=== PATIENT | male | born 1960 | race Caucasian/White ===

== ENCOUNTER 2019-07-05 09:33 | Outpatient (CLI) | payer MEDICAID, SELFPAY ==
--- NOTE | ~2019-07-05 | MR_ITS ---
EXAMINATION: MR brain IAC wo con DATE: 07/05/2019 11:18 INDICATION: One week of bilateral hand and foot numbness, left greater than right. TECHNIQUE: Magnetic resonance imaging (MRI) of the brain and brainstem was performed without intraven ous contrast. Sequences included sagittal and axial T1-weighted SE, axial diffusion-weighted FS SE, a xial T2*-weighted GRE, axial T2-weighted FLAIR, and axial T2-weighted FSE. Apparent diffusion coeffic ient (ADC) maps were created. COMPARISON: Head CT dated 04/22/2018 FINDINGS: There are no areas of restricted diffusion to suggest acute infarction. No intracranial hemorrhage or abnormal intracranial mass lesion. There are a few scattered small foci of nonspecific increased T2- weighted signal intensity in the cerebral white matter, predominantly involving the deep and perivent ricular white matter is within normal limits for age. There are no intraparenchymal signal abnormalit ies seen on the other pulse sequences. The ventricles are symmetric and normal in size. There are no abnormal extra-axial fluid collections. Flow voids are seen in the cerebral arteries on the T2-weight ed sequences consistent with their expected patency. Mild mucosal thickening throughout the paranasal sinuses. Visualized orbits and soft tissues are unremarkable. IMPRESSION: 1. Normal aging brain. No acute intracranial process. Reviewed, dictated and finalized at location A. ECHNICIAN
== END 2019-07-05 09:34 | disposition home or self-care (01) ==
PROVIDERS: PCP Family Medicine; Visit Provider Family Medicine
DX: R51 Headache (principal); R20.0 Anesthesia of skin
CPT/HCPCS: 70551

== ENCOUNTER 2019-07-07 14:17 | Outpatient (CLI) | payer MEDICAID, SELFPAY | END 2019-07-07 14:18 | disposition home or self-care (01) | PROVIDERS: PCP Family Medicine; Visit Provider Family Medicine | DX: I50.9 Heart failure, unspecified (principal) | CPT/HCPCS: 93306 ==

== ENCOUNTER 2019-07-31 13:57 | Outpatient (CLI) | payer MEDICAID, SELFPAY ==
[2019-07-31 15:10] LABS: Cholesterol 193 mg/dL (0-200); HDL Direct 38 mg/dL (40-60); LDL Cholesterol Calculated 95 mg/dL (<130); Triglycerides 302 mg/dL (0-150)
== END 2019-07-31 13:58 | disposition home or self-care (01) ==
PROVIDERS: PCP Family Medicine; Visit Provider Family Medicine
DX: E78.2 Mixed hyperlipidemia (principal)
CPT/HCPCS: 36415; 80061

== ENCOUNTER 2019-08-06 12:42 | Outpatient (CLI) | payer MEDICAID, SELFPAY ==
[2019-08-06 12:56] LABS: Basophils Absolute Auto 0.06 K/mm3 (0.00-0.10); Basophils Percent Auto 0.7 % (0.0-1.0); Eosinophils Absolute Auto 0.44 K/mm3 (0.02-0.50); Eosinophils Percent Auto 5.3 % (1.0-6.0); Hematocrit 47.5 % (40.0-54.0); Hemoglobin 15.6 g/dL (14.0-18.0); Immature Granulocyte Absolute 0.03 K/mm3 (0.00-0.00); Immature Granulocyte Percent A 0.4 % (0.0-0.0); Lymphocytes Absolute Auto 2.94 K/mm3 (1.10-4.50); Lymphocytes Percent Auto 35.4 % (18.0-42.0); Mean Corpuscular HGB Conc 32.8 g/dL (32.0-36.0); Mean Corpuscular Hemoglobin 29.7 pg (27.0-31.0); Mean Corpuscular Volume 90.5 fL (78.0-102.0); Mean Platelet Volume 8.6 fl (8.7-11.0); Monocytes Absolute Auto 0.68 K/mm3 (0.10-0.90); Monocytes Percent Auto 8.2 % (2.0-11.0); Neutrophils Absolute Auto 4.2 K/mm3 (1.7-7.2); Platelet Count Result 269 K/mm3 (150-420); Red Blood Count 5.25 M/mm3 (4.70-6.10); Red Cell Distribution Width 15.8 % (11.6-14.4); White Blood Count 8.3 K/mm3 (4.8-10.8)
[2019-08-06 13:25] LABS: Anion Gap 13.5 mmol/L (7-16); Blood Urea Nitrogen 16 mg/dL (7-18); Calcium 9.6 mg/dL (8.5-10.1); Carbon Dioxide 31 mmol/L (21-32); Chloride 102 mmol/L (98-108); Estimated Glomerular Filt Rate 57; Glucose 59 mg/dL (70-99); Magnesium 2.1 mg/dL (1.8-2.4); Osmolality Calculated 293 mOsm/kg (285-295); Potassium 4.5 mmol/L (3.5-5.1); Prothrombin Time 10.4 Seconds (9.64-11.0); Sodium 142 mmol/L (136-145)
== END 2019-08-06 12:43 | disposition home or self-care (01) ==
LOC: CHSLAB 12:45
PROVIDERS: PCP Family Medicine; Visit Provider Specialist
DX: I25.10 Atherosclerotic heart disease of native coronary artery without angina pectoris (principal); I51.9 Heart disease, unspecified
CPT/HCPCS: 36415; 80048; 83735; 85025; 85610

== ENCOUNTER 2019-08-15 10:47 | Outpatient (CLI) | payer MEDICAID, SELFPAY ==
[2019-08-15 11:39] LABS: Anion Gap 10.3 mmol/L (7-16); Blood Urea Nitrogen 12 mg/dL (7-18); Carbon Dioxide 32 mmol/L (21-32); Chloride 102 mmol/L (98-108); Estimated Glomerular Filt Rate 53; Glucose 100 mg/dL (70-99); Osmolality Calculated 289 mOsm/kg (285-295); Potassium 4.3 mmol/L (3.5-5.1); Sodium 140 mmol/L (136-145)
== END 2019-08-15 10:48 | disposition home or self-care (01) ==
LOC: CHSLAB 10:50
PROVIDERS: PCP Family Medicine; Visit Provider Specialist
DX: N28.9 Disorder of kidney and ureter, unspecified (principal)
CPT/HCPCS: 36415; 80048

== ENCOUNTER 2019-09-12 09:34 | Outpatient (CLI) | payer MEDICAID, SELFPAY ==
[2019-09-12 10:55] LABS: Anion Gap 12.1 mmol/L (7-16); Blood Urea Nitrogen 13 mg/dL (7-18); Carbon Dioxide 29 mmol/L (21-32); Chloride 104 mmol/L (98-108); Cholesterol 182 mg/dL (0-200); Estimated Glomerular Filt Rate 49; Glucose 114 mg/dL (70-99); HDL Direct 37 mg/dL (40-60); LDL Cholesterol Calculated 115 mg/dL (<130); Osmolality Calculated 293 mOsm/kg (285-295); Potassium 4.1 mmol/L (3.5-5.1); Sodium 141 mmol/L (136-145); Triglycerides 151 mg/dL (0-150)
== END 2019-09-12 09:35 | disposition home or self-care (01) ==
PROVIDERS: PCP Family Medicine
DX: Z79.899 Other long term (current) drug therapy (principal); E78.5 Hyperlipidemia, unspecified
CPT/HCPCS: 36415; 80048; 80061

== ENCOUNTER 2019-10-01 12:26 | Outpatient (CLI) | payer MEDICAID, SELFPAY ==
[2019-10-01 13:29] LABS: Anion Gap 12.3 mmol/L (7-16); Blood Urea Nitrogen 14 mg/dL (7-18); Calcium 8.8 mg/dL (8.5-10.1); Carbon Dioxide 31 mmol/L (21-32); Chloride 100 mmol/L (98-108); Estimated Glomerular Filt Rate 52; Glucose 96 mg/dL (70-99); Osmolality Calculated 288 mOsm/kg (285-295); Potassium 4.3 mmol/L (3.5-5.1); Sodium 139 mmol/L (136-145)
== END 2019-10-01 12:27 | disposition home or self-care (01) ==
LOC: CHSLAB 12:29
PROVIDERS: PCP Family Medicine; Visit Provider Internal Medicine Cardiovascular Disease
DX: I10 Essential (primary) hypertension (principal)
CPT/HCPCS: 36415; 80048

== ENCOUNTER 2019-12-12 11:41 | Outpatient (CLI) | payer MEDICAID, SELFPAY ==
--- NOTE | ~2019-12-12 | XR_ITS ---
XR foot LT min 3V DATE: 12/12/2019 12:08 INDICATION: Left dorsal foot pain for 3 weeks TECHNIQUE: 4 views COMPARISON: None FINDINGS: There is mild osteoarthritis at the first metatarsophalangeal joint. No fracture, dislocation, periosteal reaction or bone destruction is detected. No erosive change. IMPRESSION: Mild osteoarthritis at first metatarsophalangeal joint Reviewed, dictated and finalized at location B.
== END 2019-12-12 11:42 | disposition home or self-care (01) ==
LOC: CHSIMG 11:43
PROVIDERS: PCP Family Medicine; Visit Provider Family Medicine
DX: M79.672 Pain in left foot (principal)
CPT/HCPCS: 73630

== ENCOUNTER 2020-02-09 15:38 | Outpatient (CLI) | payer MEDICAID, SELFPAY ==
[2020-02-09 16:33] LABS: Basophils Absolute Auto 0.02 K/mm3 (0.00-0.10); Basophils Percent Auto 0.3 % (0.0-1.0); Eosinophils Absolute Auto 0.16 K/mm3 (0.02-0.50); Eosinophils Percent Auto 2.1 % (1.0-6.0); Hematocrit 50.9 % (40.0-54.0); Hemoglobin 16.3 g/dL (14.0-18.0); Immature Granulocyte Absolute 0.02 K/mm3 (0.00-0.00); Immature Granulocyte Percent A 0.3 % (0.0-0.0); Lymphocytes Absolute Auto 1.86 K/mm3 (1.10-4.50); Lymphocytes Percent Auto 24.6 % (18.0-42.0); Mean Corpuscular Hemoglobin 30.2 pg (27.0-31.0); Mean Corpuscular Volume 94.4 fL (78.0-102.0); Mean Platelet Volume 9.5 fl (8.7-11.0); Monocytes Absolute Auto 0.94 K/mm3 (0.10-0.90); Monocytes Percent Auto 12.5 % (2.0-11.0); Neutrophils Absolute Auto 4.6 K/mm3 (1.7-7.2); Neutrophils Percent Auto 60.2 % (50.0-70.0); Platelet Count Result 228 K/mm3 (150-420); Red Blood Count 5.39 M/mm3 (4.70-6.10); Red Cell Distribution Width 13.3 % (11.6-14.4); White Blood Count 7.6 K/mm3 (4.8-10.8)
[2020-02-09 16:34] LABS: Appearance Urine Sl Cloudy (Clear); Bilirubin Urine 1+ (Negative); Color Urine Amber (Yellow); Glucose Urine UA Negative (Negative); Ketones Urine Negative (Negative); Leukocyte Esterase Ur Negative (Negative); Nitrate Urine Negative (Negative); Protein Urine 1+ (Negative); Specific Grav Ur >= 1.030 (1.010-1.020); Urobilinogen Urine 0.2 mg/dL (0.2-1.0); pH Urine 5.5 (5.0-8.0)
[2020-02-09 16:45] LABS: Add Urine Microscopic? YES; Bacteria Urine Trace /hpf; Blood Urine Trace (Negative); RBC Urine 0-2 /hpf (0-2); Squamous Epithelial Cell Urine Rare /hpf (Few); WBC Urine 0-3 /hpf (0-3)
[2020-02-09 16:46] LABS: Mucus Urine Rare /lpf
[2020-02-09 17:10] LABS: Alanine Aminotransferase 19 U/L (16-63); Albumin Level 3.6 g/dL (3.4-5.0); Alkaline Phosphatase 105 U/L (46-116); Amylase 36 U/L (25-115); Anion Gap 12 mmol/L (8-16); Aspartate Amino Transferase 27 U/L (15-37); Bilirubin,Total 0.4 mg/dL (0.00-1.00); Blood Urea Nitrogen 17 mg/dL (7-18); Carbon Dioxide 29 mmol/L (21-32); Chloride 99 mmol/L (98-108); Estimated Glomerular Filt Rate > 60; Glucose 106 mg/dL (70-99); Lipase 120 U/L (73-393); Osmolality Calculated 291 mOsm/kg (285-295); Potassium 3.6 mmol/L (3.5-5.1); Sodium 140 mmol/L (136-145)
[2020-02-11 02:33] LABS: SARS-CoV-2 RNA PCR Negative
== END 2020-02-09 15:39 | disposition home or self-care (01) ==
LOC: CHSLAB 15:40
PROVIDERS: PCP Family Medicine; Visit Provider Family Medicine
DX: R10.817 Generalized abdominal tenderness (principal); R19.7 Diarrhea, unspecified; Z20.828 Contact with and (suspected) exposure to other viral communicable diseases
CPT/HCPCS: 36415; 80053; 81001; 82150; 83690; 85025; 87635; C9803; U0003

== ENCOUNTER 2020-02-10 11:01 | Outpatient (NON) | payer MEDICAID, SELFPAY | END 2020-02-10 11:02 | LOC: CHSLAB 11:02 | PROVIDERS: Visit Provider Family Medicine | DX: R19.7 Diarrhea, unspecified (principal) | CPT/HCPCS: 87045; 87046; 87077; 87427 ==

== ENCOUNTER 2020-05-06 11:53 | Outpatient (CLI) | payer MEDICAID, SELFPAY ==
--- NOTE | ~2020-05-06 | XR_ITS ---
XR foot LT min 3V DATE: 05/06/2020 12:20 INDICATION: Left foot pain, swelling of the digits. TECHNIQUE: 4 views COMPARISON: 12/08/2019 left foot FINDINGS: No fracture or dislocation, periosteal reaction or bone destruction. IMPRESSION: No significant abnormality Reviewed, dictated and finalized at location B. UCT CONSULTANT IMPRESSION: No significant abnormality
[2020-05-06 12:04] LABS: Basophils Absolute Auto 0.07 K/mm3 (0.00-0.10); Basophils Percent Auto 0.8 % (0.0-1.0); Eosinophils Absolute Auto 0.33 K/mm3 (0.02-0.50); Eosinophils Percent Auto 3.8 % (1.0-6.0); Hematocrit 39.7 % (40.0-54.0); Hemoglobin 13.1 g/dL (14.0-18.0); Immature Granulocyte Absolute 0.03 K/mm3 (0.00-0.00); Immature Granulocyte Percent A 0.3 % (0.0-0.0); Lymphocytes Absolute Auto 2.96 K/mm3 (1.10-4.50); Lymphocytes Percent Auto 34.1 % (18.0-42.0); Mean Corpuscular Hemoglobin 30.5 pg (27.0-31.0); Mean Corpuscular Volume 92.3 fL (78.0-102.0); Mean Platelet Volume 8.7 fl (8.7-11.0); Monocytes Absolute Auto 0.77 K/mm3 (0.10-0.90); Monocytes Percent Auto 8.9 % (2.0-11.0); Neutrophils Absolute Auto 4.5 K/mm3 (1.7-7.2); Neutrophils Percent Auto 52.1 % (50.0-70.0); Platelet Count Result 376 K/mm3 (150-420); Red Cell Distribution Width 14.7 % (11.6-14.4); White Blood Count 8.7 K/mm3 (4.8-10.8)
[2020-05-06 12:31] LABS: Alanine Aminotransferase 23 U/L (16-63); Alkaline Phosphatase 126 U/L (46-116); Anion Gap 8 mmol/L (8-16); Aspartate Amino Transferase 16 U/L (15-37); Bilirubin,Total 0.4 mg/dL (0.00-1.00); Blood Urea Nitrogen 17 mg/dL (7-18); Calcium 9.2 mg/dL (8.5-10.1); Carbon Dioxide 29 mmol/L (21-32); Chloride 99 mmol/L (98-108); Estimated Glomerular Filt Rate 54; Glucose 105 mg/dL (70-99); Osmolality Calculated 283 mOsm/kg (285-295); Potassium 4.4 mmol/L (3.5-5.1); Sodium 136 mmol/L (136-145); Uric Acid 6.7 mg/dL (3.5-7.2)
== END 2020-05-06 11:54 | disposition home or self-care (01) ==
PROVIDERS: PCP Family Medicine; Visit Provider Family Medicine
DX: M79.672 Pain in left foot (principal)
CPT/HCPCS: 36415; 73630; 80053; 84550; 85025

== ENCOUNTER 2020-09-06 02:53 | Inpatient (IN) | payer MEDICARE, MEDICAID, SELFPAY ==
[2020-09-06] VITALS (31 sets, daily range): BP systolic 82–157; BP diastolic 58–98; PULSE 68–99; RESP 12–22; TEMP 36.3–36.7; O2SAT 92–99; BMI 24.8
--- NOTE | ~2020-09-06 | XR_ITS ---
XR chest 1V portable DATE: 09/06/2020 03:15 INDICATION: Chest pain radiating to right arm TECHNIQUE: Portable AP chest on 09/06/2020 0318 hours COMPARISON: 06/12/2021 view chest FINDINGS: Left-sided transvenous AICD/pacemaker device, distal lead overlying the right ventricle. No rmal heart size. Coronary artery stent. Mild aortic unfolding and calcification. No hilar or mediastinal enlargement. Compared to 06/12/2019 there is mild prominence of the minor fissure which may indicate subpleural carolann ma in addition to pulmonary vascular redistribution which may indicate mild pulmonary venous hyperten sofia. There is mild infiltrate or atelectasis at the left lung base. No pleural effusion or pulmonary infiltrate or consolidation is noted otherwise. There is an old left humeral surgical neck fracture deformity with suggestion of nonunion/pseudoarthr osis. IMPRESSION: Pulmonary vascular redistribution and prominence of the minor fissure may indicate mild c ongestive changes. Normal heart size Mild infiltrate or atelectasis at the left lung base Reviewed, dictated and finalized at location A. IMPRESSION: Pulmonary vascular redistribution and prominence of the minor fissu re may indicate mild congestive changes. Normal heart size Mild infiltrate or atelectasis at the left lung base
--- NOTE | 2020-09-06 03:00 | ECG_ITS ---
Measurements Intervals [place] Rate: 92 P: 62 [place]: 130 QRS: 29 QRSD: 95 T: 91 QT: 326 QTc: 405 Interpretive Statements SINUS RHYTHM ST ELEVATION IN ANTERIOR LEADS- CONSIDER ACUTE INFARCT ST ELEVATION IN INFERIOR LEADS- CONSIDER ACUTE INFARCT BASELINE ARTIFACT- I, II, III, AVR, AVF, V2-V6 ABNORMAL ECG Electronically Signed On 09-06-2020 7:21:00 CDT by Fabian Bosch D.O.
--- NOTE | 2020-09-06 03:02 | ED.CHESTPAIN ---
HPI - Chest Pain General Chief Complaint: Chest Pain Stated Complaint: cp Time Seen by Provider: 09/06/20 02:53 History of Present Illness HPI narrative: 60 yo male w/ h/o CAD s/p multiple stents presents to the ED with chest pain. He has sharp substernal chest pain radiating to the right arm. This started about an hour prior to coming in. He tried nitroglycerine x2 with some improvement in symptoms. He also took 324 of aspirin. On arrival to the ED pain is 6/10. He reports that this feels like prio heart attacks. No SOB. He smokes 1 PPD Related Data Home Medications Medication Instructions Recorded Confirmed albuterol sulfate 90 mcg/actuation 1 inhalation INHALATION QID PRN 04/25/19 07/17/19 aerosol inhaler ezetimibe 10 mg tablet 10 mg PO DAILY 04/25/19 07/17/19 furosemide 40 mg tablet 40 mg PO QAM 04/25/19 07/17/19 mesalamine 500 mg 1,000 mg PO BID 04/25/19 07/17/19 capsule,controlled release rosuvastatin 40 mg tablet 40 mg PO DAILY 04/25/19 07/17/19 clopidogrel 75 mg tablet 75 mg PO DAILY 04/28/19 07/17/19 aspirin [Adult Low Dose Aspirin] 81 mg PO DAILY 06/12/19 07/17/19 insulin glargine [Basaglar KwikPen 4 unit SUBCUT DAILY 06/12/19 07/17/19 U-100 Insulin] metoprolol succinate 25 mg PO DAILY 06/12/19 07/17/19 nitroglycerin 0.4 mg SUBLINGUAL Q5M PRN 06/12/19 07/17/19 sacubitril-valsartan [Entresto] 1 tablet PO BID 06/12/19 07/17/19 warfarin [Coumadin] 2 mg PO DAILY 06/12/19 07/17/19 warfarin [Coumadin] 5 mg PO DAILY 06/12/19 07/17/19 Allergies Allergy/AdvReac Type Severity Reaction Status Date / Time No Known Allergies Allergy Mild Verified 09/06/20 03:01 Review of Systems Review of Systems: All systems reviewed & are unremarkable except as noted in HPI and below Eyes: Eyes: Reports no additional eye complaints ENT: Reports system reviewed and no additional complaints, except as documented Cardiovascular: Cardiovascular: Reports as per HPI Respiratory: Respiratory: Reports as per HPI Gastrointestinal: Gastrointestinal: Reports no additional gastrointestinal complaints Neurologic: Reports system reviewed and no additional complaints, except as documented [facility] Past Medical History Medical History CAD in [place] artery Carotid stenosis, bilateral Essential hypertension Obstructive sleep apnea PAD (peripheral artery disease) Renal artery stenosis SOB (shortness of breath) Stenosis of carotid artery Unspecified diastolic (congestive) heart failure Unspecified systolic (congestive) heart failure Family History Family History Father Family history of coronary artery disease Diabetes mellitus Family history of elevated blood lipids Mother Family history of coronary artery disease Family history of cardiovascular disease Sibling Family history of coronary artery disease Other Family history of gout Social History Social History Smoking status: Current every day smoker Smoking end date: 05/21/16 Alcohol intake: never Exam Const: Nutritional Appearance: average body habitus Orientation/consciousness: patient oriented x3 Other: Mild distress, chronically ill appearing HENMT: Head: normal to inspection Eyes: General: appearance normal, both eyes and all related structures Chest: Chest palpation & inspection: normal inspection of the chest and no tenderness Resp: Effort & Inspection: normal respiratory effort Auscultation: wheezes Cardio: Jugular venous distension: no JVD Rate: regular rate Rhythm: regular rhythm GI: GI Palp: No Tenderness to palpation present (GI) Skin: General skin exam: normal color Neuro: General: patient oriented x3 Course Vital Signs Vital signs: Vital Signs Temperature 36.3 C L 09/06/20 02:52 Pulse Rate 93 09/06/20 02:52 Respiratory Rate 22 H
[2020-09-06 03:08] LABS: Basophils Absolute Auto 0.1 K/mm3 (0.0-0.1); Basophils Percent Auto 0.6 % (0.2-1.2); Eosinophils Absolute Auto 0.3 K/mm3 (0-0.3); Eosinophils Percent Auto 3.4 % (0-4.4); Hematocrit 44.7 % (42.0-52.0); Immature Granulocyte Absolute 0.04 K/mm3 (0.00-0.031); Immature Granulocyte Percent A 0.4 % (0-0.5); Lymphocytes Absolute Auto 2.86 K/mm3 (0.9-3.2); Lymphocytes Percent Auto 30.1 % (18.3-44.2); Mean Corpuscular HGB Conc 33.6 g/dl (32-36); Mean Corpuscular Hemoglobin 30.7 pg (26-34); Mean Corpuscular Volume 91.4 fl (80-100); Mean Platelet Volume 9.1 fl (7.4-10.4); Monocytes Absolute Auto 0.7 K/mm3 (0.1-0.6); Monocytes Percent Auto 7.7 % (2.6-8.5); Neutrophils Absolute Auto 5.5 K/mm3 (1.3-6.7); Neutrophils Percent Auto 57.8 % (45.5-73.1); Platelet Count Result 256 k/mm3 (150-375); Red Blood Count 4.89 M/mm3 (4.6-6.20); Red Cell Distribution Width 14.6 % (11.5-14.5); White Blood Count 9.5 K/mm3 (4.5-10.0)
[2020-09-06] MEDS: MORPHINE SULFATE (*CRX) 2 MG/ML INJ IV PUSH (03:13)
[2020-09-06] MEDS: NITROGLYCERIN SL 0.4 MG TABLET SUBLINGUAL (03:13)
[2020-09-06 03:19] LABS: INR 0.9; Partial Thromboplastin Time 29.2 SECONDS (22.3-36.8); Prothrombin Time 12.6 Seconds (11.1-14.7)
[2020-09-06 03:23] LABS: Anion Gap 8 mmol/L (8-16); Blood Urea Nitrogen 15 mg/dL (9-20); Calcium 9.1 mg/dL (8.4-10.2); Carbon Dioxide 28 mmol/L (22-30); Chloride 104 mmol/L (98-107); Estimated Glomerular Filt Rate 51; Glucose 117 mg/dL (75-110); Potassium 4.2 mmol/L (3.4-5.0); Sodium 140 mmol/L (137-145)
--- NOTE | 2020-09-06 03:34 | PC.NURSE ---
Patient's bp 82/65, erp notified. VORB give 500ml bolus.
[2020-09-06 03:36] LABS: Troponin I 0.155 ng/mL (0.000-0.034)
[2020-09-06] MEDS: SODIUM CHLORIDE 0.9% IV 500 ML 999 ML IV CONT (03:37)
--- NOTE | 2020-09-06 03:38 | ECG_ITS ---
Measurements Intervals [place] Rate: 78 P: 27 MA: 112 QRS: 6 QRSD: 89 T: 95 QT: 388 QTc: 443 Interpretive Statements SINUS RHYTHM WITH SHORT MA INTERVAL ANTERIOR INFARCT, PROBABLY RECENT INFERIOR INFARCT, AGE INDETERMINATE BASELINE ARTIFACT- II, III, AVR, AVF, V2-V6 ABNORMAL ECG Electronically Signed On 09-06-2020 7:22:21 CDT by Fabian Bosch D.O.
[2020-09-06] MEDS: HEPARIN SODIUM 5,000 UNITS/ML VIAL 4000 UNITS IV PUSH ×2 (03:55→12:51)
[2020-09-06] MEDS: HEPARIN SOD/D5W 100 UNITS/ML 25,000 UNITS/250 ML BAG 8 UNITS IV CONT (04:01)
--- NOTE | 2020-09-06 04:08 | PC.NURSE ---
Per ERP, STEMI cancelled.
--- NOTE | 2020-09-06 04:16 | PC.NURSE ---
Patient in room resting on stretcher. Patient denies any pain at this time. Patient has bilateral 18g IVs in bilateral ACs. Patient has heparin going via IV pump. Patient VSS.
--- NOTE | 2020-09-06 05:44 | ADMGEN ---
This patient, Mendel Kyle, was admitted to IMU Room 206-02. Patient/family oriented to hospital policies and general routines including ID bracelet, bed and alarms, visiting hours, pain management, procedures, bathroom and other care routines, personal items, smoking policy, room service/diet, and visiting hours. Information on how to activate the Rapid Response Team has been discussed. Patient/Family are encouraged to report perceived risks to care and to ask questions if they do not understand what they are told or what they should do. Rosana TALAMANTES approx [id number]
[2020-09-06 07:15] LABS: Basophils Absolute Auto 0.1 K/mm3 (0.0-0.1); Basophils Percent Auto 0.6 % (0.2-1.2); Eosinophils Absolute Auto 0.2 K/mm3 (0-0.3); Eosinophils Percent Auto 1.5 % (0-4.4); Hematocrit 42.1 % (42.0-52.0); Hemoglobin 13.8 g/dL (14.0-18.0); Immature Granulocyte Absolute 0.03 K/mm3 (0.00-0.031); Immature Granulocyte Percent A 0.3 % (0-0.5); Lymphocytes Absolute Auto 2.64 K/mm3 (0.9-3.2); Lymphocytes Percent Auto 24.8 % (18.3-44.2); Mean Corpuscular HGB Conc 32.8 g/dl (32-36); Mean Corpuscular Hemoglobin 29.4 pg (26-34); Mean Corpuscular Volume 89.6 fl (80-100); Mean Platelet Volume 9.2 fl (7.4-10.4); Monocytes Absolute Auto 0.6 K/mm3 (0.1-0.6); Monocytes Percent Auto 5.5 % (2.6-8.5); Neutrophils Absolute Auto 7.2 K/mm3 (1.3-6.7); Neutrophils Percent Auto 67.3 % (45.5-73.1); Platelet Count Result 248 k/mm3 (150-375); Red Cell Distribution Width 14.3 % (11.5-14.5); White Blood Count 10.7 K/mm3 (4.5-10.0)
[2020-09-06 07:31] LABS: Prothrombin Time 13.8 Seconds (11.1-14.7)
--- NOTE | 2020-09-06 08:32 | PM.CNCAR ---
Assessment and Plan Assessment and plan (1) Non-ST elevation HI (NSTEMI): Code(s): I21.4 - Non-ST elevation (NSTEMI) myocardial infarction Status: Acute Assessment and Plan: Discussed case with Dr. Ruiz, our interventionalist about performing left heart cath. However he does not feel comfortable about performing via radial artery as patient has significant PAD and may require this. Patient also had last LHC via right radial by Dr. Worrell in [place] and had stent in same place last year. Will transfer patient to [facility] under Dr. Worrell for NSTEMI requiring left heart cath as he is their patient. Continue heparin drip. Continue home medications of aspirin, Clopidrogrel, Metoprolol, Rosuvastatin, Entresto. Hold off on Warfarin since will need cath and is on heparin drip. (2) Smoking: Code(s): F17.200 - Nicotine dependence, unspecified, uncomplicated Status: Acute Assessment and Plan: Counseled regarding smoking cessation. (3) Dyslipidemia: Code(s): E78.5 - Hyperlipidemia, unspecified Status: Acute (4) Hypertension: Code(s): I10 - Essential (primary) hypertension Status: Acute Assessment and Plan: Stable. (5) COPD (chronic obstructive pulmonary disease): Code(s): J44.9 - Chronic obstructive pulmonary disease, unspecified Status: Acute (6) PAD (peripheral artery disease): Code(s): I73.9 - Peripheral vascular disease, unspecified Status: Acute (7) CAD in [place] artery: Code(s): I25.10 - Atherosclerotic heart disease of [place] coronary artery without angina pectoris Status: Acute (8) ICD (implantable cardioverter-defibrillator) battery depletion: Code(s): Z45.02 - Encounter for adjustment and management of automatic implantable cardiac defibrillator Status: Acute Assessment and Plan: Unsure type of ICD device as patient is unsure. History of Present Illness History of Present Illness Consult date/time: 09/06/20 08:32 Patient is a 60 yr old man who presents to ER by ambulance for chest pain. His regular family consultant is Dr. Worrell in [place], [place]. He has a history of CAD, ICD placement, PAD with bilateral lower extremity bypass and stenting and CEA bilaterally, smoking, dyslipidemia, hypertension. Initially, ER called a STEMI activation, but Dr. Cristobal did not believe it to be acute so he was admitted as a NSTEMI. States his mid chest pressure radiating to right chest area started last night around 11:30-12:00 and it became severe 14/10 and currently it is 2/10. EKG shows possible sinus rhythm with anterior ST elevation- possible acute infarct. Troponins went from 0.15 to 1.4. He is on heparin drip. Normally, he can walk 1/2 block with a cane due to pain in legs and POST. Denies chest pain, sob, palpitations, edema. Cardiovascular Procedures [employer] Consultant:: Jan 2019 at [facility]: Fem-pop bypass surgery bilaterally and 2 stents bilaterally. CEA bilaterally in 2018 at [facility]. Cath (Prox LAD with 50% instent restenosis and minor/moderate luminal irregularities in LM, LCx, RCA.) - 08/19/2015 Echo/MUGA:: Echo (EF 40-45%, mid to apical septum is akinetic and mid to apical lateral wall is akinetic, and entire apex is akinetic. No apical thrombus, mild LVE, grade I diastolic dysfunction (E/E' 11), mild MR, trace TR.) - 01/14/2019 Electrophysiology:: EKG (Sinus rhythm, delayed R/S transition.) - 12/24/2018 Stress Tests:: MPI (Negative for ischemia. Large area of severe infarct of LV apex and apical segments. EF 46%.) - 01/14/2019 Abd/Pelvis CT (LV apex aneurysm with 9mm thrombus, thinning of LV apex and of septum; occlusion of right external iliac artery and reconstitution from inf epigsstric artery.) - 12/25/2018 Reason For Visit: NSTEMI Review of Systems Review of Systems: All systems reviewed & are unremarkable except as noted in HPI and below Constitutional: Constitutiona
[2020-09-06 12:40] LABS: Partial Thromboplastin Time 42.8 SECONDS (22.3-36.8)
--- NOTE | 2020-09-06 14:39 | PM.IMHP ---
H&P: HPI History of Present Illness Date/Time: 09/06/20 14:39 patient is 60 year old male with history of coronary artery disease most likely ischemic cardiomyopathy with ICD presented emergency department via EMS with complaint of chest pain initially was called STEMI by ER however shipping helper review of the EKG and did not suspect STEMI and called NSTEMI and did not require immediate catheterization, patient was seen by Dr. Bosch, patient is regular shipping helper is [facility] on . Dr. Bosch spoke with the shipping helper and is accepted for transfer, patient is on heparin drip will continue currently patient denies any chest pain shortness of breath palpitation or disease, patient patient is clinically stable and waiting for to be transferred. Chief Complaint: Chest pain Review of Systems Review of Systems: All systems reviewed & are unremarkable except as noted in HPI and below PMFSH Past Medical History Medical History CAD in [place] artery Carotid stenosis, bilateral Essential hypertension Obstructive sleep apnea PAD (peripheral artery disease) Renal artery stenosis SOB (shortness of breath) Stenosis of carotid artery Unspecified diastolic (congestive) heart failure Unspecified systolic (congestive) heart failure Family History Family History Father Family history of coronary artery disease Diabetes mellitus Family history of elevated blood lipids Mother Family history of coronary artery disease Family history of cardiovascular disease Sibling Family history of coronary artery disease Other Family history of gout Social History Social History Smoking packs per day: 1 Smoking cigarettes per day: 20.0 Years smoked: 45 Smoking pack-years: 45.00 Smoking status: Current every day smoker Tobacco type: cigarettes Alcohol intake: never Substance use: never Gender identity (if verbalized by the patient): Male Spiritual care concerns: No Meds Home Medications and Allergies Home Medications Medication Instructions Recorded Confirmed Type albuterol sulfate 90 mcg/actuation 2 puff INHALATION QID PRN 04/25/19 09/06/20 History aerosol inhaler ezetimibe 10 mg tablet 10 mg PO DAILY 04/25/19 09/06/20 History furosemide 40 mg tablet 40 mg PO QAM 04/25/19 09/06/20 History mesalamine 500 mg 1,000 mg PO BID 04/25/19 09/06/20 History capsule,controlled release rosuvastatin 40 mg tablet 40 mg PO DAILY 04/25/19 09/06/20 History clopidogrel 75 mg tablet 75 mg PO DAILY 04/28/19 09/06/20 History aspirin [Adult Low Dose Aspirin] 81 mg PO DAILY 06/12/19 09/06/20 History insulin glargine [Basaglar KwikPen 4 unit SUBCUT DAILY 06/12/19 09/06/20 History U-100 Insulin] metoprolol succinate 25 mg PO DAILY 06/12/19 09/06/20 History nitroglycerin 0.4 mg SUBLINGUAL Q5M PRN 06/12/19 09/06/20 History sacubitril-valsartan [Entresto] 1 tablet PO BID 06/12/19 09/06/20 History warfarin [Coumadin] 2 mg PO DAILY 06/12/19 09/06/20 History warfarin [Coumadin] 5 mg PO DAILY 06/12/19 09/06/20 History Allergies Allergy/AdvReac Type Severity Reaction Status Date / Time No Known Allergies Allergy Mild Verified 09/06/20 03:01 Vital Signs Vital Signs - 24 hr 09/06/20 02:52 09/06/20 03:06 09/06/20 03:15 Temperature 97.3 F L Pulse Rate 93 82 85 Respiratory Rate 22 H 12 21 H Blood Pressure 153/98 H Pulse Oximetry 98 96 97 09/06/20 03:16 09/06/20 03:30 09/06/20 03:31 Temperature Pulse Rate 99 73 76 Respiratory Rate 14 15 20 Blood Pressure 140/96 H 84/58 L Pulse Oximetry 97 93 92 09/06/20 03:33 09/06/20 03:37 09/06/20 03:48 Temperature Pulse Rate 79 79 78 Respiratory Rate 21 H 17 19 Blood Pressure 82/65 L 82/65 L Pulse Oximetry 94 94 93 09/06/20 04:03 09/06/20 04:15 09/06/20
--- NOTE | 2020-09-06 14:44 | PM.TDS ---
Transfer Discharge Sum: Prov Provider Date of admission: 09/06/20 04:06 Primary care physician: Bal Man MD Admitting clinician: Fabian Bosch DO Consults: 09/06/20 Consult to Physician Routine Comment: Consulting Provider: Ally Quintana insulation power unit tender/MD group to consult: Reason for consultation: medical management Has provider been notified: Yes DS: Admitting Diagnosis Admitting Diagnosis Admitting Diagnosis: Chief Complaint: Chest pain DS: Discharge Diagnosis Discharge Diagnosis (1) Non-ST elevation CA (NSTEMI): Code(s): I21.4 - Non-ST elevation (NSTEMI) myocardial infarction Status: Acute Assessment and Plan: 09/06/20 14:39 patient is 60 year old male with history of coronary artery disease most likely ischemic cardiomyopathy with ICD presented emergency department via EMS with complaint of chest pain initially was called STEMI by ER however commissioned sales associate review of the EKG and did not suspect STEMI and called NSTEMI and did not require immediate catheterization, patient was seen by Dr. Bosch, patient is regular commissioned sales associate is [facility] on . Dr. Bosch spoke with the commissioned sales associate and is accepted for transfer, patient is on heparin drip will continue currently patient denies any chest pain shortness of breath palpitation or disease, patient patient is clinically stable and waiting for to be transferred. Transfer Discharge Sum: Med Medications Active and Home Medications: Home Medications albuterol sulfate 90 mcg/actuation aerosol inhaler 2 puff INHALATION QID PRN 04/25/19 [History Confirmed 09/06/20] ezetimibe 10 mg tablet 10 mg PO DAILY 04/25/19 [History Confirmed 09/06/20] furosemide 40 mg tablet 40 mg PO QAM 04/25/19 [History Confirmed 09/06/20] mesalamine 500 mg capsule,controlled release 1,000 mg PO BID 04/25/19 [History Confirmed 09/06/20] rosuvastatin 40 mg tablet 40 mg PO DAILY 04/25/19 [History Confirmed 09/06/20] clopidogrel 75 mg tablet 75 mg PO DAILY 04/28/19 [History Confirmed 09/06/20] aspirin [Adult Low Dose Aspirin] 81 mg PO DAILY 06/12/19 [History Confirmed 09/06/20] insulin glargine [Basaglar KwikPen U-100 Insulin] 4 unit SUBCUT DAILY 06/12/19 [History Confirmed 09/06/20] metoprolol succinate 25 mg PO DAILY 06/12/19 [History Confirmed 09/06/20] nitroglycerin 0.4 mg SUBLINGUAL Q5M PRN 06/12/19 [History Confirmed 09/06/20] sacubitril-valsartan [Entresto] 1 tablet PO BID 06/12/19 [History Confirmed 09/06/20] warfarin [Coumadin] 2 mg PO DAILY 06/12/19 [History Confirmed 09/06/20] warfarin [Coumadin] 5 mg PO DAILY 06/12/19 [History Confirmed 09/06/20] Active Medications Albuterol (Albuterol Sulfate (*Sp) Aerosol 1 Puff) 2 puff INHALATION QID PRN PRN Reason: Shortness Of Breath Aspirin (Aspirin 81 Mg Enteric Tablet) 81 mg PO DAILY [facility] Clopidogrel Bisulfate (Clopidogrel Bisulfate 75 Mg Tablet) 75 mg PO DAILY [facility] Ezetimibe (Ezetimibe 10 Mg Tablet) 10 mg PO DAILY [facility] Furosemide (Furosemide 40 Mg Tablet) 40 mg PO QAM [facility] Heparin Sodium (Porcine) (Heparin Sodium 5,000 Units/Ml Vial) 4,000 units IV PUSH PRN PRN PRN Reason: aPTT less than 55 seconds Last Admin: 09/06/20 12:51 Dose: 4,000 units Documented by: Heparin Sodium (Porcine) (Heparin Sodium 5,000 Units/Ml Vial) 2,500 units IV PUSH PRN PRN PRN Reason: aPTT 55 - 70 seconds Heparin Sodium/Dextrose (Heparin Sodium/D5w 100 Units/Ml) 25,000 units in 250 mls @ 9 mls/hr IV CONT .Q24H YOMI; Protocol Last Titration: 09/06/20 12:45 Dose: 900 units/hr, 9 mls/hr Documented by: Metoprolol Succinate (Metoprolol Succinate Ext Rel 25 Mg Tabcr) 25 mg PO DAILY [facility] Nitroglycerin (Nitroglycerin Sl 0.4 Mg Tablet) 0.4 mg SUBLINGUAL Q5MIN PRN PRN Reason: Chest Pain Last Admin: 09/06/20 03:13 Dose: 0.4 mg Documented by: Nitroglycerin (Nitroglycerin Sl 0.4 Mg Tablet) 0.4 mg SUBLINGUAL Q5M PRN PRN Reason: Chest Pain Non-Formulary Medication (Mesalamine [Pentasa]) 1,000 mg PO BID YOMI Stop: 10/06/20 1
[2020-09-06] MEDS: MESALAMINE 250 MG CAP CR 1000 MG PO (18:24)
[2020-09-06] MEDS: SACUBITRIL/VALSARTAN 24-26 MG TABLET 1 TAB PO (18:24)
[2020-09-06 18:25] LABS: Partial Thromboplastin Time 95.3 SECONDS (22.3-36.8)
[2020-09-06 19:04] LABS: SARS-CoV-2 RNA PCR Negative
== END 2020-09-06 19:45 | disposition short-term general hospital (02) | DRG 281 ==
LOC: ANHED 04:34 → ANHIMU 05:04
PROVIDERS: Internal Medicine Cardiovascular Disease; Admitting Provider Family Medicine; Emergency Provider Emergency Medicine; PCP Family Medicine; Visit Provider Family Medicine
DX: I21.4 Non-ST elevation (NSTEMI) myocardial infarction (principal); I50.42 Chronic combined systolic (congestive) and diastolic (congestive) heart failure; I11.0 Hypertensive heart disease with heart failure; Z20.822 Contact with and (suspected) exposure to COVID-19; I25.10 Atherosclerotic heart disease of native coronary artery without angina pectoris; I25.5 Ischemic cardiomyopathy; G47.33 Obstructive sleep apnea (adult) (pediatric); I65.23 Occlusion and stenosis of bilateral carotid arteries; I70.1 Atherosclerosis of renal artery; I73.9 Peripheral vascular disease, unspecified; E78.5 Hyperlipidemia, unspecified; J44.9 Chronic obstructive pulmonary disease, unspecified; F17.210 Nicotine dependence, cigarettes, uncomplicated; Z95.810 Presence of automatic (implantable) cardiac defibrillator
CPT/HCPCS: 36415; 71045; 80048; 84484; 85025; 85610; 85730; 93005; 96374; 96375; 99291; A9270; C9803; J1644; J2270; J7040; U0003; U0005

== ENCOUNTER 2021-02-12 12:28 | Emergency (ER) | payer MEDICAID, SELFPAY ==
[2021-02-12] VITALS (7 sets, daily range): BP systolic 112–167; BP diastolic 78–97; PULSE 84–117; RESP 16–20; TEMP 36.6–36.8; O2SAT 91–98
--- NOTE | ~2021-02-12 | XR_ITS ---
EXAMINATION: XR chest 1V portable EXAM DATE: 02/12/2021 12:51 INDICATION: Multiple defibrillator discharges and pain. TECHNIQUE: Portable AP frontal chest x-ray was obtained. Comparison is made to prior examination from 09/06/2020. FINDINGS: There is single lead pacemaker/AICD device seen with tip projecting over the expected locat ion of right ventricle. Mild cardiomegaly and pulmonary vascular congestion. No confluent consolidati on, pneumothorax or pleural effusion suspected. Old left humeral neck fracture with nonunion. IMPRESSION: Cardiomegaly, pulmonary vascular congestion. Reviewed, dictated and finalized at location A.
--- NOTE | 2021-02-12 12:32 | ECG_ITS ---
Measurements Intervals [place] Rate: 120 P: 52 NM: 137 QRS: 15 QRSD: 87 T: 90 QT: 276 QTc: 390 Interpretive Statements SINUS TACHYCARDIA MINIMAL Q WAVES- INFERIOR LEADS ANTERIOR INFARCT, AGE INDETERMINATE BORDERLINE ST-T WAVE ABNORMALITY- HIGH LATERAL LEADS ABNORMAL ECG Electronically Signed On 02-14-2021 6:56:23 CDT by Fabian Bosch D.O.
--- NOTE | 2021-02-12 12:35 | ED.GENADULT ---
HPI - General Adult General Chief complaint: Chest Pain Stated complaint: ambulance Source: patient and EMS Mode of arrival: EMS Limitations: no limitations History of Present Illness HPI narrative: Mendel is a very pleasant 60M with a PMH of CAD, PAD, COPD, Crohns, HTN, HLD, DMII, HFrEF s/p pacemaker that presented to the ED after his pacemaker went off 10 times. He was pouring sugar in his coffee when he noticed some palpitations then he was shocked 10 times or so. It has not gone off since EMS arrived. He denies CP outside the shocks, SOB, lightheadedness, N/V and syncope. Related Data Home Medications Medication Instructions Recorded Confirmed albuterol sulfate 90 mcg/actuation 2 puff INHALATION QID PRN 04/25/19 02/12/21 aerosol inhaler furosemide 40 mg tablet 20 mg PO QAM 04/25/19 02/12/21 rosuvastatin 40 mg tablet 40 mg PO DAILY 04/25/19 02/12/21 clopidogrel 75 mg tablet 75 mg PO DAILY 04/28/19 02/12/21 aspirin [Adult Low Dose Aspirin] 81 mg PO DAILY 06/12/19 02/12/21 insulin glargine [Basaglar KwikPen 4 unit SUBCUT DAILY 06/12/19 02/12/21 U-100 Insulin] nitroglycerin 0.4 mg SUBLINGUAL Q5M PRN 06/12/19 02/12/21 sacubitril-valsartan [Entresto] 1 tablet PO BID 06/12/19 02/12/21 carvedilol 25 mg PO BID 02/12/21 02/12/21 ezetimibe [Zetia] 10 mg PO DAILY 02/12/21 02/12/21 ipratropium bromide [Atrovent HFA] 10 puff INHALATION QID 02/12/21 02/12/21 ipratropium-albuterol [Combivent 1 puff INHALATION QID 02/12/21 02/12/21 Respimat] isosorbide mononitrate 30 mg PO DAILY 02/12/21 02/12/21 mesalamine [Pentasa] 1,000 mg PO QID 02/12/21 02/12/21 rivaroxaban [Xarelto] 15 mg PO DAILY 02/12/21 02/12/21 spironolactone 25 mg PO DAILY 02/12/21 02/12/21 tramadol 50 mg PO Q6H PRN 02/12/21 02/12/21 Allergies Allergy/AdvReac Type Severity Reaction Status Date / Time No Known Allergies Allergy Mild Verified 02/12/21 14:15 Review of Systems Constitutional: Constitutional: Reports no additional constitutional complaints Eyes: Eyes: Reports no additional eye complaints ENT: Reports system reviewed and no additional complaints, except as documented Cardiovascular: Cardiovascular: Reports as per HPI Respiratory: Respiratory: Reports no additional respiratory complaints Gastrointestinal: Gastrointestinal: Reports no additional gastrointestinal complaints Genitourinary: Genitourinary: Reports no additional male genitourinary complaints Musculoskeletal: Musculoskeletal: Reports no additional musculoskeletal complaints Integumentary/Breasts: Skin/Breast: Reports system reviewed and no additional complaints, except as docu Neurologic: Reports system reviewed and no additional complaints, except as documented Psychiatric: Psychiatric: Reports no additional psychiatric complaints Endocrine: Endocrine: Reports no additional endocrine complaints Hematologic/Lymphatic: Hematologic/Lymphatic: Reports no additional hematologic/lymphatic complaints Allergic/Immunologic: Allergic/Immunologic: Reports no additional allergic/immunologic complaints [facility] Past Medical History Medical History CAD in [place] artery Carotid stenosis, bilateral Essential hypertension Obstructive sleep apnea PAD (peripheral artery disease) Renal artery stenosis SOB (shortness of breath) Stenosis of carotid artery Unspecified diastolic (congestive) heart failure Unspecified systolic (congestive) heart failure Family History Family History Father Family history of coronary artery disease Diabetes mellitus Family history of elevated blood lipids Mother Family history of coronary artery disease Family history of cardiovascular disease Sibling Family history of coronary artery disease Other Family history of gout Social History Social History Smoking packs per da
[2021-02-12 12:45] LABS: Basophils Absolute Auto 0.05 K/mm3 (0.00-0.10); Basophils Percent Auto 0.7 % (0.0-1.0); Eosinophils Absolute Auto 0.26 K/mm3 (0.02-0.50); Eosinophils Percent Auto 3.6 % (1.0-6.0); Hematocrit 50.2 % (40.0-54.0); Hemoglobin 16.5 g/dL (14.0-18.0); Immature Granulocyte Absolute 0.02 K/mm3 (0.00-0.00); Immature Granulocyte Percent A 0.3 % (0.0-0.0); Mean Corpuscular HGB Conc 32.9 g/dL (32.0-36.0); Mean Corpuscular Hemoglobin 30.4 pg (27.0-31.0); Mean Corpuscular Volume 92.6 fL (78.0-102.0); Mean Platelet Volume 9.6 fl (8.7-11.0); Monocytes Absolute Auto 0.44 K/mm3 (0.10-0.90); Neutrophils Absolute Auto 3.3 K/mm3 (1.7-7.2); Neutrophils Percent Auto 45.4 % (50.0-70.0); Platelet Count Result 213 K/mm3 (150-420); Red Blood Count 5.42 M/mm3 (4.70-6.10); Red Cell Distribution Width 14.1 % (11.6-14.4); White Blood Count 7.3 K/mm3 (4.8-10.8)
[2021-02-12 12:58] LABS: Prothrombin Time 11.1 Seconds (9.50-12.10)
[2021-02-12 13:08] LABS: Alanine Aminotransferase 18 U/L (16-63); Albumin Level 3.8 g/dL (3.4-5.0); Alkaline Phosphatase 137 U/L (46-116); Anion Gap 13 mmol/L (8-16); Aspartate Amino Transferase 14 U/L (15-37); Bilirubin,Total 0.5 mg/dL (0.00-1.00); Blood Urea Nitrogen 15 mg/dL (7-18); Calcium 9.1 mg/dL (8.5-10.1); Carbon Dioxide 26 mmol/L (21-32); Chloride 102 mmol/L (98-108); Estimated Glomerular Filt Rate 38; Glucose 165 mg/dL (70-99); Osmolality Calculated 296 mOsm/kg (285-295); Potassium 4.8 mmol/L (3.5-5.1); Sodium 141 mmol/L (136-145); Total Protein 7.9 g/dL (6.4-8.2)
[2021-02-12 13:09] LABS: Troponin I 199.8 ng/L (0.00-60.4)
[2021-02-12 13:29] LABS: NT Pro B Type Natriuretic Pept 2199 pg/mL (0-125)
--- NOTE | 2021-02-12 14:06 | PC.NURSE ---
pt resting quietly. at bedside. awaiting return call from cardiology from [facility]. do discharge of internal defib since arrival. no change in monitor pattern
[2021-02-12 14:15] LABS: SARS-CoV-2 Ag Negative (Negative)
--- NOTE | 2021-02-12 14:36 | PC.NURSE ---
3rd attempt to reach cardiology at [facility] unsuccessful at this time. no change in pt condition or monitor pattern. family at the bedside. few ice offered. no internal defib discharge since arrival.
[2021-02-12] MEDS: ASPIRIN 81 MG CHEWABLE TABLET 243 MG PO (15:12)
[2021-02-12] MEDS: AMIODARONE 150 MG/D5W 100 ML 150 MG/100 ML BAG 600 MG IV CONT (15:12)
[2021-02-12 15:19] LABS: Magnesium 1.9 mg/dL (1.8-2.4); Thyroid Stimulating Hormone 2.23 uIU/mL (0.36-3.74)
[2021-02-12] MEDS: AMIODARONE 360 MG/D5W 200 ML 360 MG/200 ML BAG 33.33 MG IV CONT (15:25)
--- NOTE | 2021-02-12 15:32 | PC.NURSE ---
amiodarone gtt infusing well. awaiting call from receiving facility, [facility] pt denies pain at this time.
== END 2021-02-12 16:25 | disposition short-term general hospital (02) ==
PROVIDERS: Emergency Provider Family Medicine
DX: I50.31 Acute diastolic (congestive) heart failure (principal); Z20.822 Contact with and (suspected) exposure to COVID-19
CPT/HCPCS: 36415; 71045; 80053; 83735; 83880; 84443; 84484; 85025; 85610; 87426; 93005; 96365; 99285; A9270; C9803; J0282

== ENCOUNTER 2021-03-02 08:24 | Outpatient (CLI) | payer MEDICAID, SELFPAY ==
[2021-03-02 09:31] LABS: Anion Gap 10 mmol/L (8-16); Blood Urea Nitrogen 13 mg/dL (7-18); Calcium 8.9 mg/dL (8.5-10.1); Carbon Dioxide 28 mmol/L (21-32); Chloride 104 mmol/L (98-108); Estimated Glomerular Filt Rate 45; Glucose 76 mg/dL (70-99); Osmolality Calculated 293 mOsm/kg (285-295); Potassium 4.3 mmol/L (3.5-5.1); Sodium 142 mmol/L (136-145)
== END 2021-03-02 08:25 | disposition home or self-care (01) ==
LOC: CHSLAB 08:29
PROVIDERS: PCP Family Medicine
DX: E11.40 Type 2 diabetes mellitus with diabetic neuropathy, unspecified (principal); Z45.02 Encounter for adjustment and management of automatic implantable cardiac defibrillator
CPT/HCPCS: 36415; 80048; 83036

== ENCOUNTER 2021-04-07 08:11 | Outpatient (CLI) | payer MEDICAID, SELFPAY ==
[2021-04-07 09:23] LABS: Cholesterol 86 mg/dL (0-200); HDL Direct 36 mg/dL (40-60); LDL Cholesterol Calculated 30 mg/dL (<130); Triglycerides 100 mg/dL (0-150)
== END 2021-04-07 08:12 | disposition home or self-care (01) ==
LOC: CHSLAB 08:12
PROVIDERS: PCP Family Medicine; Visit Provider Internal Medicine Cardiovascular Disease
DX: E78.5 Hyperlipidemia, unspecified (principal)
CPT/HCPCS: 36415; 80061

== ENCOUNTER 2021-05-30 08:14 | Outpatient (CLI) | payer MEDICAID, SELFPAY ==
--- NOTE | ~2021-05-30 | XR_ITS ---
EXAMINATION: XR chest 2V DATE: 05/30/2021 08:39 INDICATION: Shortness of breath. Chest tightness. TECHNIQUE: Frontal and lateral views of the chest were obtained. COMPARISON: Chest single view 02/12/2021, CT abdomen and pelvis 08/29/2018 FINDINGS: A calcified left lung nodule is consistent with old granulomatous disease. No pleural effus ion or pneumothorax. The heart size is normal. There is a left chest pacer/defibrillator with lead in right ventricle. There is an old fracture of proximal left humerus. IMPRESSION: 1. No acute cardiopulmonary disease. Reviewed, dictated and finalized at location B. K SALES MANAGER
[2021-05-30 08:28] LABS: Basophils Absolute Auto 0.04 K/mm3 (0.00-0.10); Basophils Percent Auto 0.5 % (0.0-1.0); Eosinophils Absolute Auto 0.32 K/mm3 (0.02-0.50); Eosinophils Percent Auto 4.2 % (1.0-6.0); Hematocrit 46.2 % (40.0-54.0); Immature Granulocyte Absolute 0.02 K/mm3 (0.00-0.00); Immature Granulocyte Percent A 0.3 % (0.0-0.0); Lymphocytes Absolute Auto 2.35 K/mm3 (1.10-4.50); Mean Corpuscular HGB Conc 32.5 g/dL (32.0-36.0); Mean Corpuscular Hemoglobin 30.9 pg (27.0-31.0); Mean Corpuscular Volume 95.1 fL (78.0-102.0); Mean Platelet Volume 8.9 fl (8.7-11.0); Monocytes Absolute Auto 0.47 K/mm3 (0.10-0.90); Monocytes Percent Auto 6.2 % (2.0-11.0); Neutrophils Absolute Auto 4.4 K/mm3 (1.7-7.2); Neutrophils Percent Auto 57.8 % (50.0-70.0); Platelet Count Result 277 K/mm3 (150-420); Red Blood Count 4.86 M/mm3 (4.70-6.10); Red Cell Distribution Width 13.6 % (11.6-14.4); White Blood Count 7.6 K/mm3 (4.8-10.8)
[2021-05-30 09:15] LABS: Anion Gap 8 mmol/L (8-16); Blood Urea Nitrogen 24 mg/dL (7-18); Calcium 8.9 mg/dL (8.5-10.1); Carbon Dioxide 34 mmol/L (21-32); Chloride 99 mmol/L (98-108); Estimated Glomerular Filt Rate 39; Glucose 127 mg/dL (70-99); Osmolality Calculated 298 mOsm/kg (285-295); Potassium 3.9 mmol/L (3.5-5.1); Sodium 141 mmol/L (136-145)
== END 2021-05-30 08:15 | disposition home or self-care (01) ==
LOC: CHSLAB 08:17
PROVIDERS: PCP Family Medicine; Visit Provider Internal Medicine Cardiovascular Disease
DX: R06.02 Shortness of breath (principal); Z92.29 Personal history of other drug therapy; Z79.899 Other long term (current) drug therapy
CPT/HCPCS: 36415; 71046; 80048; 85025

== ENCOUNTER 2021-06-01 11:56 | Outpatient (CLI) | payer MEDICAID, SELFPAY ==
--- NOTE | ~2021-06-01 | CT_ITS ---
EXAMINATION: CTA chest PE protocol DATE: 06/01/2021 14:18 INDICATION: Shortness of breath. TECHNIQUE: Computed tomography angiography (CTA) of the chest was performed with 100 mL Omnipaque-350 intravenous contrast timed to evaluate the pulmonary arteries. Coronal maximum intensity projection 3D-reconstructions were created by the technologist. Automated exposure control and iterative reconst ruction technique were employed. The dose-length product was 156.35 mGy-cm. COMPARISON: Chest CT 05/16/2017, chest 2 views 05/30/2021 FINDINGS: There is moderate emphysema. There is mild atelectasis bilaterally. There is mild scarring at the lung apices. There is a new 6 mm nodule in left upper lobe. There is a new 4 mm nodule in left upper lobe. A calcified left lung nodule and calcified left hilar lymph nodes are consistent with ol d granulomatous disease. No pleural effusion. There is left ventricular enlargement the heart. There is a stent in left anterior descending coronary artery. No pericardial effusion. There is a left ches t pacer with lead in right ventricle. Calcifications in the spleen are consistent with old granulomat ous disease. There is no pulmonary embolus. There is mild thoracic spondylosis. IMPRESSION: 1. No pulmonary embolus. 2. New pulmonary nodules, probably benign. Noncontrast low-dose chest CT is recommended in 6 months. 3. Moderate emphysema. Reviewed, dictated and finalized at location B. IGURATION DEVELOPER IMPRESSION: 1. No pulmonary embolus. 2. New pulmonary nodules, probably benign. Noncontrast low-dose chest CT is rec ommended in 6 months. 3. Moderate emphysema.
[2021-06-01 12:42] LABS: D Dimer 2.54 mg/L (0.19-0.50)
== END 2021-06-01 11:57 | disposition home or self-care (01) ==
PROVIDERS: PCP Family Medicine; Visit Provider Internal Medicine Cardiovascular Disease
DX: R06.02 Shortness of breath (principal); R00.0 Tachycardia, unspecified; R79.89 Other specified abnormal findings of blood chemistry
CPT/HCPCS: 36415; 71275; 85380; Q9967

== ENCOUNTER 2021-07-11 12:45 | Outpatient (CLI) | payer MEDICAID, SELFPAY ==
[2021-07-11 13:03] LABS: Basophils Absolute Auto 0.06 K/mm3 (0.00-0.10); Basophils Percent Auto 0.9 % (0.0-1.0); Eosinophils Absolute Auto 0.26 K/mm3 (0.02-0.50); Eosinophils Percent Auto 3.7 % (1.0-6.0); Hematocrit 42.6 % (40.0-54.0); Hemoglobin 13.8 g/dL (14.0-18.0); Immature Granulocyte Absolute 0.01 K/mm3 (0.00-0.00); Immature Granulocyte Percent A 0.1 % (0.0-0.0); Lymphocytes Absolute Auto 1.93 K/mm3 (1.10-4.50); Lymphocytes Percent Auto 27.6 % (18.0-42.0); Mean Corpuscular HGB Conc 32.4 g/dL (32.0-36.0); Mean Corpuscular Hemoglobin 30.6 pg (27.0-31.0); Mean Corpuscular Volume 94.5 fL (78.0-102.0); Monocytes Absolute Auto 0.62 K/mm3 (0.10-0.90); Monocytes Percent Auto 8.9 % (2.0-11.0); Neutrophils Absolute Auto 4.1 K/mm3 (1.7-7.2); Neutrophils Percent Auto 58.8 % (50.0-70.0); Platelet Count Result 241 K/mm3 (150-420); Red Blood Count 4.51 M/mm3 (4.70-6.10); Red Cell Distribution Width 14.4 % (11.6-14.4)
[2021-07-11 13:34] LABS: Alanine Aminotransferase 18 U/L (16-63); Albumin Level 3.4 g/dL (3.4-5.0); Alkaline Phosphatase 147 U/L (46-116); Anion Gap 8 mmol/L (8-16); Aspartate Amino Transferase 13 U/L (15-37); Bilirubin,Total 0.4 mg/dL (0.00-1.00); Blood Urea Nitrogen 13 mg/dL (7-18); Calcium 8.9 mg/dL (8.5-10.1); Carbon Dioxide 30 mmol/L (21-32); Chloride 103 mmol/L (98-108); Estimated Glomerular Filt Rate 51; Glucose 82 mg/dL (70-99); Osmolality Calculated 291 mOsm/kg (285-295); Potassium 4.2 mmol/L (3.5-5.1); Sodium 141 mmol/L (136-145); Total Protein 7.1 g/dL (6.4-8.2)
== END 2021-07-11 12:46 | disposition home or self-care (01) ==
LOC: CHSLAB 12:49
PROVIDERS: PCP Family Medicine
DX: I50.23 Acute on chronic systolic (congestive) heart failure (principal)
CPT/HCPCS: 36415; 80053; 85025

== ENCOUNTER 2022-03-20 08:13 | Outpatient (CLI) | payer MEDICAID, SELFPAY ==
--- NOTE | ~2022-03-20 | US_ITS ---
EXAMINATION: US abdomen complete DATE: 03/20/2022 09:27 INDICATION: Cystic mass in the liver on prior imaging. TECHNIQUE: Multiple grayscale and Doppler ultrasound images of the abdomen were obtained. COMPARISON: CT dated 08/29/18 FINDINGS: The pancreatic head and body are normal in appearance. The pancreatic tail is not visualized. Abdomi nal aorta measures 1.8 cm in the mid aorta tapering to 1.4 cm in the distal aorta. Incompletely visua lized, likely aortobiiliac stent in the distal aorta. Visualized proximal inferior vena cava is l. Liver has normal echogenicity and contour, with a smooth surface. No liver lesion identified. No i ntrahepatic biliary duct dilation suspected. Portal venous flow was seen in the hepatopetal, normal d irection and has normal Doppler waveform. Normal directional flow and waveforms in the hepatic veins and hepatic artery. The gallbladder is normal in appearance. There is no cholelithiasis. The common bile duct measures 8 mm, which is normal. Sonographic Flores sign was reported as negative by the son ographer. There is normal renal contour and echogenicity bilaterally. The right kidney measures 8.8 x 4.7 x 3.4 cm and the left 9.0 x 5.2 x 4.7 cm. 9 mm anechoic left renal cyst. No other focal renal le sions identified. There is no hydronephrosis. Spleen measures 8.2 cm in maximal length with a few sha dowing calcifications consistent with old granulomatous disease. IMPRESSION: 1. Normal liver. No hepatic masses or cysts identified. 2. Aortobiiliac stenting. Reviewed, dictated and finalized at location B.
== END 2022-03-20 08:14 | disposition home or self-care (01) ==
LOC: CHSIMG 08:14
PROVIDERS: PCP Family Medicine
DX: I50.22 Chronic systolic (congestive) heart failure (principal)
CPT/HCPCS: 76700

== ENCOUNTER 2022-03-29 08:32 | Outpatient (CLI) | payer MEDICAID, SELFPAY ==
--- NOTE | ~2022-03-29 | CT_ITS ---
EXAMINATION: CT abdomen wo con DATE: 03/29/2022 08:48 INDICATION: Liver cyst. Chronic systolic heart failure TECHNIQUE: Computed tomography (CT) of the abdomen was performed without intravenous contrast. Automa gabby exposure control and iterative reconstruction technique were employed. Exam dose: 141.05 mGy-cm total exam DLP. COMPARISON: 03/20/2022 complete abdominal ultrasound /03/2019 CT abdomen pelvis FINDINGS: Minimal discoid atelectasis and/or scarring at the lung bases. Right atrial and right ventricular pacemaker leads. Cardiomegaly. No pericardial or pleural effusion. The liver, gallbladder, bile ducts are unremarkable. No pancreatic mass lesion, calcification or duct al dilatation. Multiple calcified splenic granulomas. There is no adrenal mass lesion. No renal mass lesion or urinary tract calculus or hydroureteronephrosis. Aorto biiliac femoral endovascular stent. The abdominal aortic diameter is within normal range. There is atherosclerotic calcification of the abdominal aorta and iliac arteries. No intraperitoneal or re troperitoneal mass lesion or adenopathy or ascites. Diverticulosis of the descending colon. No CT evidence of diverticulitis of the included:. No bowel o bstruction, bowel wall thickening, pneumatosis or intraperitoneal free air. Included skeletal structures are unremarkable. IMPRESSION: Aortobiiliac endovascular stent Diverticulosis of descending colon Cardiomegaly Right atrial and right ventricular pacemaker leads Reviewed, dictated and finalized at Location A. Reviewed, dictated and finalized at location A. RDOUS WASTE MANAGEMENT SPECIALIST
== END 2022-03-29 08:33 | disposition home or self-care (01) ==
LOC: CHSIMG 08:34
PROVIDERS: PCP Family Medicine
DX: I50.22 Chronic systolic (congestive) heart failure (principal)
CPT/HCPCS: 74150

== ENCOUNTER 2022-07-11 10:34 | Emergency (ER) | payer MEDICAID, SELFPAY ==
[2022-07-11] VITALS (14 sets, daily range): BP systolic 104–135; BP diastolic 66–93; PULSE 95–120; RESP 23–33; TEMP 37.7–38.8; O2SAT 91–98
--- NOTE | 2022-07-11 10:46 | ED.WEAKNESS ---
HPI - Weakness General Chief complaint: Weakness Stated complaint: weakness Time Seen by Provider: 07/11/22 10:38 Source: patient and RN notes reviewed Mode of arrival: wheelchair Limitations: no limitations History of Present Illness MD Complaint: generalized weakness Onset (ago): day(s) (1) Duration: intermittent Location: generalized Migration: none Severity: moderate Relieving factors: none Exacerbating factors: exertion Context: recent illness Associated symptoms: fever/chills, headaches, myalgias and shortness of breath Related Data Home Medications Medication Instructions Recorded Confirmed albuterol sulfate 90 mcg/actuation 2 puff inhalation QID PRN 04/25/19 02/12/21 aerosol inhaler (ProAir HFA) Shortness Of Breath furosemide 40 mg tablet 20 mg PO QAM 04/25/19 02/12/21 rosuvastatin 40 mg tablet (Crestor) 40 mg PO DAILY 04/25/19 02/12/21 clopidogrel 75 mg tablet (Plavix) 75 mg PO DAILY 04/28/19 02/12/21 aspirin 81 mg tablet,delayed 81 mg PO DAILY 06/12/19 02/12/21 release (Adult Low Dose Aspirin) insulin glargine 100 unit/mL (3 4 unit subcut DAILY 06/12/19 02/12/21 mL) subcutaneous pen (Basaglar KwikPen U-100 Insulin) nitroglycerin 0.4 mg sublingual 0.4 mg sublingual Q5M PRN Chest 06/12/19 02/12/21 tablet Pain sacubitril 24 mg-valsartan 26 mg 1 tablet PO BID 06/12/19 02/12/21 tablet (Entresto) carvedilol 25 mg tablet 25 mg PO BID 02/12/21 02/12/21 ezetimibe 10 mg tablet (Zetia) 10 mg PO DAILY 02/12/21 02/12/21 ipratropium 20 mcg-albuterol 100 1 puff inhalation QID 02/12/21 02/12/21 mcg/actuation mist for inhalation (Combivent Respimat) ipratropium bromide 17 10 puff inhalation QID 02/12/21 02/12/21 mcg/actuation HFA aerosol inhaler (Atrovent HFA) isosorbide mononitrate 30 mg 30 mg PO DAILY 02/12/21 02/12/21 tablet,extended release 24 hr mesalamine 500 mg capsule,extended 1,000 mg PO QID 02/12/21 02/12/21 release (Pentasa) rivaroxaban 20 mg tablet (Xarelto) 15 mg PO DAILY 02/12/21 02/12/21 spironolactone 25 mg tablet 25 mg PO DAILY 02/12/21 02/12/21 tramadol 50 mg tablet 50 mg PO Q6H PRN Pain 02/12/21 02/12/21 Allergies Allergy/AdvReac Type Severity Reaction Status Date / Time No Known Allergies Allergy Mild Verified 07/11/22 10:45 Review of Systems Review of Systems: All systems reviewed & are unremarkable except as noted in HPI and below Constitutional: Constitutional: Reports chills and Reports fever(s) Cardiovascular: Cardiovascular: Denies chest pain Respiratory: Respiratory: Reports cough ( He is a smoker and he says it is unchanged) Gastrointestinal: Gastrointestinal: Denies nausea Musculoskeletal: Musculoskeletal: Reports myalgias [facility] Past Medical History Medical History (Updated 07/11/22 @ 11:52 by Mendel Treadwell MD) CAD in [place] artery Carotid stenosis, bilateral Chronic systolic heart failure COPD with asthma Essential hypertension History of CVA (cerebrovascular accident) Interstitial lung disease Obstructive sleep apnea PAD (peripheral artery disease) Renal artery stenosis SOB (shortness of breath) Stenosis of carotid artery Unspecified diastolic (congestive) heart failure Unspecified systolic (congestive) heart failure Family History Family History Father Family history of coronary artery disease Diabetes mellitus Family history of elevated blood lipids Mother Family history of coronary artery disease Family history of cardiovascular disease Sibling Family history of coronary artery disease Other Family history of gout Social History Social History Smoking packs per day: 1 Smoking cigarettes per day: 20.0 Years smoked: 45 Smoking pack-years: 45.00 Smoking status: Current every day smoker Tobacco type: cigarettes Alcohol intake: never Substance use: never Gender identity (if verba
[2022-07-11 11:00] LABS: Basophils Absolute Auto 0.03 K/mm3 (0.00-0.10); Basophils Percent Auto 0.6 % (0.0-1.0); Eosinophils Absolute Auto 0.04 K/mm3 (0.02-0.50); Eosinophils Percent Auto 0.8 % (1.0-6.0); Hematocrit 44.7 % (40.0-54.0); Hemoglobin 14.9 g/dL (14.0-18.0); Immature Granulocyte Absolute 0.02 K/mm3 (0.00-0.00); Immature Granulocyte Percent A 0.4 % (0.0-0.0); Lymphocytes Absolute Auto 0.46 K/mm3 (1.10-4.50); Lymphocytes Percent Auto 9.6 % (18.0-42.0); Mean Corpuscular HGB Conc 33.3 g/dL (32.0-36.0); Mean Corpuscular Hemoglobin 31.2 pg (27.0-31.0); Mean Corpuscular Volume 93.7 fL (78.0-102.0); Mean Platelet Volume 9.2 fl (8.7-11.0); Monocytes Absolute Auto 0.92 K/mm3 (0.10-0.90); Monocytes Percent Auto 19.2 % (2.0-11.0); Neutrophils Absolute Auto 3.3 K/mm3 (1.7-7.2); Neutrophils Percent Auto 69.4 % (50.0-70.0); Platelet Count Result 197 K/mm3 (150-420); Red Blood Count 4.77 M/mm3 (4.70-6.10); Red Cell Distribution Width 13.9 % (11.6-14.4); White Blood Count 4.8 K/mm3 (4.8-10.8)
[2022-07-11] MEDS: ACETAMINOPHEN 500 MG TABLET 1000 MG PO (11:01)
[2022-07-11 11:19] LABS: Alanine Aminotransferase 16 U/L (16-63); Albumin Level 3.7 g/dL (3.4-5.0); Alkaline Phosphatase 127 U/L (46-116); Anion Gap 10 mmol/L (8-16); Aspartate Amino Transferase 20 U/L (15-37); Bilirubin,Total 0.5 mg/dL (0.00-1.00); Blood Urea Nitrogen 19 mg/dL (7-18); CRP 1.8 mg/dL (0.0-0.9); Calcium 8.4 mg/dL (8.5-10.1); Carbon Dioxide 26 mmol/L (21-32); Chloride 101 mmol/L (98-108); Estimated CRCL calculation 27 ml/min; Estimated Glomerular Filt Rate 38; Glucose 94 mg/dL (70-99); Magnesium 1.8 mg/dL (1.8-2.4); Osmolality Calculated 286 mOsm/kg (285-295); Sodium 137 mmol/L (136-145); Total Protein 8.2 g/dL (6.4-8.2)
[2022-07-11 11:19] LABS: Influenza A QL RT-PCR Negative (Negative); Influenza B QL RT-PCR Negative (Negative); SARS-CoV-2 RNA PCR Positive (Negative)
[2022-07-11 11:24] LABS: Lactic Acid Reflex 1.2 mmol/L (0.4-2.0)
--- NOTE | 2022-07-17 18:42 | PC.NURSE ---
FINAL BLOOD CULTURE: No growth after 5 days, no action needed.
== END 2022-07-11 12:00 | disposition home or self-care (01) ==
PROVIDERS: Emergency Provider Emergency Medicine; PCP Family Medicine
DX: U07.1 COVID-19 (principal); I25.10 Atherosclerotic heart disease of native coronary artery without angina pectoris; J44.9 Chronic obstructive pulmonary disease, unspecified; I11.0 Hypertensive heart disease with heart failure; I50.9 Heart failure, unspecified; F17.210 Nicotine dependence, cigarettes, uncomplicated
CPT/HCPCS: 36415; 80053; 83605; 83735; 85025; 86140; 87040; 87636; 96372; 99283; J1100

== ENCOUNTER 2022-11-03 13:21 | Outpatient (CLI) | payer MEDICAID, SELFPAY ==
--- NOTE | ~2022-11-03 | XR_ITS ---
EXAMINATION: XR abdomen obstructive series DATE: 11/03/2022 13:58 INDICATION: Epigastric pain TECHNIQUE: Upright and supine views of the abdomen were obtained. COMPARISON: CT, 03/29/2022 FINDINGS: There is a moderate volume of colonic stool. No free intraperitoneal gas is identified. Pun ctate calcifications in an otherwise normal spleen likely represent healed granulomatous disease. The visualized lung bases are clear. Endovascular stents are noted in the iliac arteries. IMPRESSION: 1. Nonobstructive bowel gas pattern. Reviewed, dictated and finalized at location A.
[2022-11-03 13:41] LABS: Basophils Absolute Auto 0.05 K/mm3 (0.00-0.10); Basophils Percent Auto 0.8 % (0.0-1.0); Eosinophils Absolute Auto 0.41 K/mm3 (0.02-0.50); Eosinophils Percent Auto 6.2 % (1.0-6.0); Hematocrit 46.7 % (40.0-54.0); Immature Granulocyte Absolute 0.01 K/mm3 (0.00-0.00); Immature Granulocyte Percent A 0.2 % (0.0-0.0); Lymphocytes Absolute Auto 2.17 K/mm3 (1.10-4.50); Lymphocytes Percent Auto 32.9 % (18.0-42.0); Mean Corpuscular HGB Conc 32.1 g/dL (32.0-36.0); Mean Corpuscular Hemoglobin 30.5 pg (27.0-31.0); Mean Corpuscular Volume 94.9 fL (78.0-102.0); Mean Platelet Volume 9.1 fl (8.7-11.0); Monocytes Absolute Auto 0.65 K/mm3 (0.10-0.90); Monocytes Percent Auto 9.8 % (2.0-11.0); Neutrophils Absolute Auto 3.3 K/mm3 (1.7-7.2); Neutrophils Percent Auto 50.1 % (50.0-70.0); Platelet Count Result 227 K/mm3 (150-420); Red Blood Count 4.92 M/mm3 (4.70-6.10); Red Cell Distribution Width 13.8 % (11.6-14.4); White Blood Count 6.6 K/mm3 (4.8-10.8)
[2022-11-03 13:47] LABS: Appearance Urine Clear (Clear); Bilirubin Urine Negative (Negative); Blood Urine Negative (Negative); Color Urine Yellow (Yellow); Glucose Urine UA Negative (Negative); Ketones Urine Negative (Negative); Leukocyte Esterase Ur Negative LEU/UL (Negative); Nitrate Urine Negative (Negative); Protein Urine Negative (Negative); Specific Grav Ur 1.025 (1.010-1.020)
[2022-11-03 13:50] LABS: Add Urine Microscopic? NO
[2022-11-03 13:57] LABS: Creatinine Urine 160.55 mg/dL (40-278); Microalbumin Urine Random < 13.0 mg/L
[2022-11-03 14:01] LABS: Hemoglobin A1C 5.8 % (<5.7)
[2022-11-03 14:21] LABS: Alanine Aminotransferase 17 U/L (16-63); Albumin Level 3.6 g/dL (3.4-5.0); Alkaline Phosphatase 139 U/L (46-116); Amylase 78 U/L (25-115); Anion Gap 7 mmol/L (8-16); Aspartate Amino Transferase 14 U/L (15-37); Bilirubin,Total 0.4 mg/dL (0.00-1.00); Blood Urea Nitrogen 15 mg/dL (7-18); Calcium 9.4 mg/dL (8.5-10.1); Carbon Dioxide 33 mmol/L (21-32); Chloride 101 mmol/L (98-108); Estimated Glomerular Filt Rate 47; Glucose 84 mg/dL (70-99); Lipase 103 U/L (16-77); Osmolality Calculated 291 mOsm/kg (285-295); Potassium 4.3 mmol/L (3.5-5.1); Sodium 141 mmol/L (136-145); Thyroid Stimulating Hormone 1.35 uIU/mL (0.36-3.74); Total Protein 7.6 g/dL (6.4-8.2)
== END 2022-11-03 13:22 | disposition home or self-care (01) ==
LOC: CHSLAB 13:25
PROVIDERS: PCP Family Medicine; Visit Provider Family Medicine
DX: R10.13 Epigastric pain (principal); E11.40 Type 2 diabetes mellitus with diabetic neuropathy, unspecified
CPT/HCPCS: 36415; 74019; 80053; 81003; 82043; 82150; 83036; 83690; 84443; 85025

== ENCOUNTER 2023-04-04 13:36 | Emergency (ER) | payer MEDICAID, SELFPAY ==
[2023-04-04] VITALS (14 sets, daily range): BP systolic 110–127; BP diastolic 78–90; PULSE 90–110; RESP 17–31; TEMP 36.4–36.9; O2SAT 96–100
--- NOTE | ~2023-04-04 | XR_ITS ---
EXAMINATION: XR chest 1V portable DATE: 04/04/2023 14:27 INDICATION: Shortness of breath. TECHNIQUE: A single frontal view of the chest was obtained. COMPARISON: Chest single view 05/30/2021 FINDINGS: There is a diffuse interstitial pattern, consistent mild pulmonary edema. No pleural effusi on or pneumothorax. Cardiomegaly is noted. There is a left chest pacer/defibrillator with lead in rig ht ventricle. There is old fracture of proximal left humerus with nonunion. IMPRESSION: 1. Mild pulmonary edema. 2. Cardiomegaly. Reviewed, dictated and finalized at location A. GEMENT LEAD
--- NOTE | 2023-04-04 13:46 | ED.SOB ---
HPI - SOB/Dyspnea General Chief Complaint: Arrhythmia/Palpitations Stated Complaint: abnormal EKG Time Seen by Provider: 04/04/23 13:42 Source: patient Mode of arrival: ambulatory History of Present Illness HPI Narrative: 62-year-old male, smoker with a history of hypertension, dyslipidemia, diabetes, coronary artery disease with an EF of 20-25%, status post multiple stents, cardiac catheterization in 2020 which did not show any occluded stents,status post ICD, on Xarelto for possible AFib, peripheral vascular disease with bilateral carotid stenosis, OLENA CVA with left-sided weakness in November of 2022, COVID last year, Crohn's disease on Pentasa, CKD presents to the ER with -- shortness of breath off and on for the past 2 years. It has been worse for the past 2 days. No cough or sputum production. No leg swelling. -- No fever or chest pain. MD elicited complaint: shortness of breath Pertinent past history: COPD and congestive heart failure Onset (ago): day(s) ( worse for the past 2 days) Timing: constant Exacerbating factors: nothing Relieving factors: nothing Known history of: COPD and congestive heart failure Associated symptoms: denies other symptoms and cough Treatment prior to arrival: none Related Data Home Medications Medication Instructions Recorded Confirmed albuterol sulfate 90 mcg/actuation 2 puff inhalation QID PRN 04/25/19 04/04/23 aerosol inhaler (ProAir HFA) Shortness Of Breath furosemide 40 mg tablet 80 mg PO BID 04/25/19 04/04/23 rosuvastatin 40 mg tablet (Crestor) 20 mg PO HS 04/25/19 04/04/23 clopidogrel 75 mg tablet (Plavix) 75 mg PO DAILY 04/28/19 04/04/23 nitroglycerin 0.4 mg sublingual 0.4 mg sublingual Q5M PRN Chest 06/12/19 04/04/23 tablet Pain ipratropium bromide 17 2 puff inhalation QID 02/12/21 04/04/23 mcg/actuation HFA aerosol inhaler (Atrovent HFA) isosorbide mononitrate 30 mg 30 mg PO DAILY 02/12/21 04/04/23 tablet,extended release 24 hr mesalamine 500 mg capsule,extended 1,000 mg PO QID 02/12/21 04/04/23 release (Pentasa) rivaroxaban 20 mg tablet (Xarelto) 20 mg PO DAILY 02/12/21 04/04/23 tramadol 50 mg tablet 50 mg PO Q6H PRN Pain 02/12/21 04/04/23 amiodarone 200 mg tablet 200 mg PO DAILY 04/04/23 04/04/23 dapagliflozin propanediol 10 mg 10 mg PO DAILY 04/04/23 04/04/23 tablet (Farxiga) evolocumab 140 mg/mL subcutaneous 140 mg subcut ONCE 04/04/23 04/04/23 pen injector (Repatha SureClick) pantoprazole 40 mg tablet,delayed 40 mg PO QAM 04/04/23 04/04/23 release potassium chloride 20 mEq 20 meq PO BID 04/04/23 04/04/23 tablet,extended release(part/cryst) sacubitril 97 mg-valsartan 103 mg 1 tablet PO BID 04/04/23 04/04/23 tablet (Entresto) Allergies Allergy/AdvReac Type Severity Reaction Status Date / Time No Known Allergies Allergy Mild Verified 04/04/23 14:10 Review of Systems Review of Systems: All systems reviewed & are unremarkable except as noted in HPI and below Constitutional: Constitutional: Reports as per HPI and Reports no additional constitutional complaints Eyes: Eyes: Reports as per HPI and Reports no additional eye complaints ENT: Reports system reviewed and no additional complaints, except as documented and Reports as per HPI Cardiovascular: Cardiovascular: Reports as per HPI and Reports no additional cardiovascular complaints Respiratory: Respiratory: Reports as per HPI, Reports no additional respiratory complaints, Reports chest congestion, Reports cough and Reports dyspnea Gastrointestinal: Gastrointestinal: Reports as per HPI and Reports no additional gastrointestinal complaints Genitourinary: Genitourinary: Reports no additional male genitourinary complaints Musculoskeletal: Musculoskeletal: Reports no additional musculoskeletal complaints and Reports as per HPI Integumentary/Breasts: Skin/Breast: Reports system reviewed and no additional complaints, except as docu and Reports as per HPI Neurologic: Reports system reviewed and no
--- NOTE | 2023-04-04 13:57 | ECG_ITS ---
Measurements Intervals [place] Rate: 100 P: 67 AK: 146 QRS: 72 QRSD: 102 T: 63 QT: 339 QTc: 438 Interpretive Statements SINUS TACHYCARDIA POSSIBLE LEFT ATRIAL ENLARGEMENT ANTERIOR INFARCT, AGE INDETERMINATE ABNORMAL ECG COMPARED TO ECG 02/12/2021 12:36:43 HEART RATE HAS DECREASED Electronically Signed On 04-04-2023 14:35:17 CERTIFIED MASSAGE THERAPIST by Fabian Bosch D.O.
[2023-04-04 14:33] LABS: Basophils Absolute Auto 0.04 K/mm3 (0.00-0.10); Basophils Percent Auto 0.6 % (0.0-1.0); Eosinophils Absolute Auto 0.19 K/mm3 (0.02-0.50); Eosinophils Percent Auto 2.7 % (1.0-6.0); Hematocrit 41.4 % (40.0-54.0); Hemoglobin 13.5 g/dL (14.0-18.0); Immature Granulocyte Absolute 0.02 K/mm3 (0.00-0.00); Immature Granulocyte Percent A 0.3 % (0.0-0.0); Lymphocytes Absolute Auto 1.76 K/mm3 (1.10-4.50); Lymphocytes Percent Auto 25.5 % (18.0-42.0); Mean Corpuscular HGB Conc 32.6 g/dL (32.0-36.0); Mean Corpuscular Hemoglobin 31.2 pg (27.0-31.0); Mean Corpuscular Volume 95.6 fL (78.0-102.0); Mean Platelet Volume 9.2 fl (8.7-11.0); Monocytes Absolute Auto 0.61 K/mm3 (0.10-0.90); Monocytes Percent Auto 8.8 % (2.0-11.0); Neutrophils Absolute Auto 4.3 K/mm3 (1.7-7.2); Neutrophils Percent Auto 62.1 % (50.0-70.0); Platelet Count Result 230 K/mm3 (150-420); Red Blood Count 4.33 M/mm3 (4.70-6.10); Red Cell Distribution Width 13.6 % (11.6-14.4); White Blood Count 6.9 K/mm3 (4.8-10.8)
[2023-04-04 14:47] LABS: INR 1.1; Partial Thromboplastin Time 30.2 SEC (23.90-30.70); Prothrombin Time 12.2 Seconds (9.50-12.10)
[2023-04-04 14:56] LABS: Lactic Acid Reflex 1.7 mmol/L (0.4-2.0)
[2023-04-04 14:57] LABS: Alanine Aminotransferase 16 U/L (16-63); Albumin Level 3.3 g/dL (3.4-5.0); Alkaline Phosphatase 144 U/L (46-116); Anion Gap 7 mmol/L (8-16); Aspartate Amino Transferase 12 U/L (15-37); Bilirubin,Total 0.6 mg/dL (0.00-1.00); Blood Urea Nitrogen 20 mg/dL (7-18); Calcium 9.1 mg/dL (8.5-10.1); Carbon Dioxide 31 mmol/L (21-32); Chloride 105 mmol/L (98-108); Estimated CRCL calculation 32 ml/min; Estimated Glomerular Filt Rate 42; Glucose 111 mg/dL (70-99); NT Pro B Type Natriuretic Pept 5401 pg/mL (0-125); Osmolality Calculated 299 mOsm/kg (285-295); Potassium 4.1 mmol/L (3.5-5.1); Sodium 143 mmol/L (136-145); Total Protein 7.1 g/dL (6.4-8.2)
[2023-04-04 14:58] LABS: Lipase 46 U/L (16-77); Troponin I 53.9 ng/L (0.00-60.4)
[2023-04-04 15:10] LABS: Base Excess ABG 1.2 mmol/L (0-2); HCO3 ABG 23.7 mmol/L (23-29); Oxygen Content ABG 19.2 %vol (16.0-22.0); Oxygen Saturation ABG 98.3 % (95-97); Oxyhemoglobin 95.5 % (94-100); PCO2 ABG 31.4 mmHg (35-45); PO2 ABG 117.9 mmHg (80-90); Total Hemoglobin 14.2 g/dL (12.0-18.0)
[2023-04-04 15:13] LABS: Device ROOM AIR; Modified Allen's Test Pass; Site Drawn RIGHT BRACHIAL
[2023-04-04 15:15] LABS: Influenza A QL RT-PCR Negative (Negative); Influenza B QL RT-PCR Negative (Negative); RSV RNA, RT-PCR Negative (Negative); SARS-CoV-2 RNA PCR Negative (Negative)
[2023-04-04] MEDS: FUROSEMIDE INJ 40 MG/4 ML VIAL IV PUSH (15:21)
== END 2023-04-04 16:30 | disposition left against medical advice (07) ==
PROVIDERS: Emergency Provider Internal Medicine Critical Care Medicine; PCP Family Medicine
DX: I13.0 Hypertensive heart and chronic kidney disease with heart failure and stage 1 through stage 4 chronic kidney disease, or unspecified chronic kidney disease (principal); I50.22 Chronic systolic (congestive) heart failure; E11.22 Type 2 diabetes mellitus with diabetic chronic kidney disease; N18.9 Chronic kidney disease, unspecified; E78.5 Hyperlipidemia, unspecified; I25.10 Atherosclerotic heart disease of native coronary artery without angina pectoris; F17.210 Nicotine dependence, cigarettes, uncomplicated; Z79.01 Long term (current) use of anticoagulants; Z20.822 Contact with and (suspected) exposure to COVID-19
CPT/HCPCS: 36415; 36600; 71045; 80053; 82805; 83605; 83690; 83880; 84484; 85025; 85610; 85730; 87637; 93005; 96374; 99284; J1940

== ENCOUNTER 2023-05-18 07:29 | Emergency (ER) | payer MEDICAID, SELFPAY ==
[2023-05-18] VITALS (52 sets, daily range): BP systolic 81–134; BP diastolic 58–101; PULSE 106–123; RESP 17–56; TEMP 36.2; O2SAT 93–100
--- NOTE | ~2023-05-18 | CT_ITS ---
EXAMINATION: CT abdomen pelvis wo con DATE: 05/18/2023 11:09 INDICATION: Abdomen pain TECHNIQUE: Computed tomography (CT) of the abdomen and pelvis was performed without intravenous contr ast. The dose-length product was 200.32 mGy-cm. Automated exposure control and iterative reconstructi on technique were employed. COMPARISON: CT dated 03/29/2022. FINDINGS: Small pleural effusions. Small pericardial effusion. There is dependent atelectasis. Cardio megaly. There are calcified granulomas of the spleen. There is diffuse thickening of the gastric wall . There is fluid/stranding in the right upper abdomen adjacent to the duodenum, near the inferior mar gin of the gallbladder. There are stents in the common and external iliac arteries. There is atherosc lerosis of the aorta. There is residual contrast in the kidneys, there is mild portacaval and periaor tic lymph node enlargement. Gallbladder is present. There are calcified granulomas of the spleen. The gallbladder wall is indistinct possibly thickened. No radiopaque stones identified. The adrenal glan ds and right kidney are unremarkable. There is a subcentimeter hypodensity of the left kidney, most l ikely benign cysts. Colonic diverticulosis without evidence for diverticulitis. From prior CT angiogr am of the chest performed 05/18/2023. No free air. IMPRESSION: 1. Abnormal fluid/fat stranding in the right upper abdomen caudal to the duodenum and gallbladder vasile ng the hepatic margin. These findings are nonspecific. There is possible mild gallbladder wall thicke margarita. There is mild thickening of the gastric wall and duodenum. Consider gastritis/duodenitis, lymph ronnie and cholecystitis 2: Small pleural effusions. 3: Small pericardial effusion. Reviewed, dictated and finalized at location A. CAL UNDERWRITER IMPRESSION: 1. Abnormal fluid/fat stranding in the right upper abdomen caudal to the duoden um and gallbladder along the hepatic margin. These findings are nonspecific. Th ere is possible mild gallbladder wall thickening. There is mild thickening of t he gastric wall and duodenum. Consider gastritis/duodenitis, lymphoma and ericka cystitis 2: Small pleural effusions. 3: Small pericardial effusion.
--- NOTE | ~2023-05-18 | CT_ITS ---
EXAMINATION: CTA chest PE protocol DATE: 05/18/2023 09:04 INDICATION: Dyspnea. Tachycardia. TECHNIQUE: Computed tomography (CT) of the cervical spine was performed without intravenous contrast. The dose-length product was 183 mGy-cm. Automated exposure control and iterative reconstruction tech [employer] were employed. COMPARISON: CT dated 06/01/2021 FINDINGS: Small pleural effusions. Study is technically adequate without evidence for pulmonary embol ism. There is mediastinal and right hilar lymphadenopathy, likely reactive. Cardiomegaly. No signific ant pericardial effusion. There are calcified granulomas of the spleen. Severe emphysema. No endobron chial lesions. There is dependent atelectasis. No endobronchial lesions. No pneumothorax. There is a pacemaker overlying the left chest wall, lead in the right ventricle. IMPRESSION: 1. No evidence for pulmonary embolism. 2: Small pleural effusions. 3: Mediastinal and right hilar lymphadenopathy, likely reactive. 4: Severe emphysema. 5: Cardiomegaly. Reviewed, dictated and finalized at location A. E WORKER
--- NOTE | 2023-05-18 07:37 | ECG_ITS ---
Measurements Intervals [place] Rate: 116 P: 65 [place]: 145 QRS: -32 QRSD: 102 T: 107 QT: 323 QTc: 450 Interpretive Statements SINUS TACHYCARDIA WITH OCCASIONAL VENTRICULAR PREMATURE COMPLEXES LEFT ATRIAL ENLARGEMENT [-0.15mV P-WAVE IN V1/V2] LEFT AXIS DEVIATION [QRS AXIS < -30] POSSIBLE ANTERIOR MYOCARDIAL INFARCTION , OF INDETERMINATE AGE [30 ms Q WAVE IN V3/V4, OR R < 0.2 mV IN V4] COMPARED TO ECG 04/04/2023 13:50:17 LEFT-AXIS DEVIATION NOW PRESENT Electronically Signed On 05-18-2023 16:25:49 CHEMICAL TREATMENT OPERATOR by Chente Forrest M.D.
--- NOTE | 2023-05-18 07:49 | ED.GENADULT ---
HPI - General Adult General Chief complaint: Shortness of Breath/Dyspnea Stated complaint: Shortness of breath Time Seen by Provider: 05/18/23 07:30 History of Present Illness HPI narrative: Mendel is a 62M with a PMH of Crohn's disease, ICD placement, CAD, HTN, HLD, carotid stenosis, PAD, GERD, possible afib, HFrEF that presented to the ED with dyspnea. It started two weeks ago but became much worse 4-5 days ago. He denies N/V, lightheadedness, fevers, chest pain, diarrhea and palpitations. He has been taking lasix 80mg PO BID. Related Data Home Medications Medication Instructions Recorded Confirmed albuterol sulfate 90 mcg/actuation 2 puff inhalation QID PRN 04/25/19 05/18/23 aerosol inhaler (ProAir HFA) Shortness Of Breath furosemide 40 mg tablet 80 mg PO BID 04/25/19 05/18/23 rosuvastatin 40 mg tablet (Crestor) 20 mg PO HS 04/25/19 05/18/23 clopidogrel 75 mg tablet (Plavix) 75 mg PO DAILY 04/28/19 05/18/23 nitroglycerin 0.4 mg sublingual 0.4 mg sublingual Q5M PRN Chest 06/12/19 05/18/23 tablet Pain ipratropium bromide 17 2 puff inhalation QID 02/12/21 05/18/23 mcg/actuation HFA aerosol inhaler (Atrovent HFA) isosorbide mononitrate 30 mg 30 mg PO DAILY 02/12/21 05/18/23 tablet,extended release 24 hr mesalamine 500 mg capsule,extended 1,000 mg PO QID 02/12/21 05/18/23 release (Pentasa) rivaroxaban 20 mg tablet (Xarelto) 20 mg PO DAILY 02/12/21 05/18/23 tramadol 50 mg tablet 50 mg PO Q6H PRN Pain 02/12/21 05/18/23 amiodarone 200 mg tablet 200 mg PO DAILY 04/04/23 05/18/23 dapagliflozin propanediol 10 mg 10 mg PO DAILY 04/04/23 05/18/23 tablet (Farxiga) evolocumab 140 mg/mL subcutaneous 140 mg subcut ONCE 04/04/23 05/18/23 pen injector (Repgloria SureNicolaick) pantoprazole 40 mg tablet,delayed 40 mg PO QAM 04/04/23 05/18/23 release potassium chloride 20 mEq 20 meq PO BID 04/04/23 05/18/23 tablet,extended release(part/cryst) sacubitril 97 mg-valsartan 103 mg 1 tablet PO BID 04/04/23 05/18/23 tablet (Entresto) Allergies Allergy/AdvReac Type Severity Reaction Status Date / Time No Known Allergies Allergy Mild Verified 05/18/23 07:45 Review of Systems Review of Systems: All systems reviewed & are unremarkable except as noted in HPI and below PMFSH Past Medical History Medical History CAD in [place] artery Carotid stenosis, bilateral Chronic systolic heart failure COPD with asthma Essential hypertension History of CVA (cerebrovascular accident) Interstitial lung disease Obstructive sleep apnea PAD (peripheral artery disease) Renal artery stenosis SOB (shortness of breath) Stenosis of carotid artery Unspecified diastolic (congestive) heart failure Unspecified systolic (congestive) heart failure Family History Family History Father Family history of coronary artery disease Diabetes mellitus Family history of elevated blood lipids Mother Family history of coronary artery disease Family history of cardiovascular disease Sibling Family history of coronary artery disease Other Family history of gout Social History Social History Smoking packs per day: 1 Smoking cigarettes per day: 20.0 Years smoked: 45 Smoking pack-years: 45.00 Smoking status: Current every day smoker Tobacco type: cigarettes Alcohol intake: never Substance use: never Gender identity (if verbalized by the patient): Male Spiritual care concerns: No Exam Const: General: cooperative, well developed, alert, awake and Physically active Orientation/consciousness: oriented to person, oriented to place and oriented to time HENMT: Head: normal to inspection, normocephalic and atraumatic Ears: hearing grossly normal bilaterally and external ears normal Face/Nose/Sinus: Normal external nose present Eyes: General: a
[2023-05-18 08:04] LABS: Basophils Absolute Auto 0.07 K/mm3 (0.00-0.10); Basophils Percent Auto 0.9 % (0.0-1.0); Eosinophils Absolute Auto 0.12 K/mm3 (0.02-0.50); Eosinophils Percent Auto 1.5 % (1.0-6.0); Hematocrit 46.8 % (40.0-54.0); Immature Granulocyte Absolute 0.02 K/mm3 (0.00-0.00); Immature Granulocyte Percent A 0.2 % (0.0-0.0); Lymphocytes Absolute Auto 1.94 K/mm3 (1.10-4.50); Lymphocytes Percent Auto 24.1 % (18.0-42.0); Mean Corpuscular HGB Conc 32.1 g/dL (32.0-36.0); Mean Corpuscular Hemoglobin 30.9 pg (27.0-31.0); Mean Corpuscular Volume 96.3 fL (78.0-102.0); Mean Platelet Volume 9.7 fl (8.7-11.0); Monocytes Absolute Auto 0.79 K/mm3 (0.10-0.90); Monocytes Percent Auto 9.8 % (2.0-11.0); Neutrophils Absolute Auto 5.1 K/mm3 (1.7-7.2); Neutrophils Percent Auto 63.5 % (50.0-70.0); Platelet Count Result 229 K/mm3 (150-420); Red Blood Count 4.86 M/mm3 (4.70-6.10); Red Cell Distribution Width 14.8 % (11.6-14.4); White Blood Count 8.1 K/mm3 (4.8-10.8)
[2023-05-18 08:25] LABS: Lactic Acid Reflex 3.4 mmol/L (0.4-2.0)
[2023-05-18 08:31] LABS: CRP 1.4 mg/dL (0.0-0.9)
[2023-05-18 08:31] LABS: Alanine Aminotransferase 116 U/L (16-63); Albumin Level 3.7 g/dL (3.4-5.0); Alkaline Phosphatase 123 U/L (46-116); Anion Gap 10 mmol/L (8-16); Aspartate Amino Transferase 90 U/L (15-37); Bilirubin,Total 1.3 mg/dL (0.00-1.00); Blood Urea Nitrogen 28 mg/dL (7-18); Calcium 8.9 mg/dL (8.5-10.1); Carbon Dioxide 28 mmol/L (21-32); Chloride 102 mmol/L (98-108); Estimated CRCL calculation 27 ml/min; Estimated Glomerular Filt Rate 36; Glucose 121 mg/dL (70-99); Magnesium 1.9 mg/dL (1.8-2.4); NT Pro B Type Natriuretic Pept 9658 pg/mL (0-125); Osmolality Calculated 296 mOsm/kg (285-295); Sodium 140 mmol/L (136-145); Total Protein 7.1 g/dL (6.4-8.2)
[2023-05-18 08:32] LABS: Troponin I 110.7 ng/L (0.00-60.4)
[2023-05-18 08:46] LABS: Influenza A QL RT-PCR Negative (Negative); Influenza B QL RT-PCR Negative (Negative); RSV RNA, RT-PCR Negative (Negative); SARS-CoV-2 RNA PCR Negative (Negative)
[2023-05-18] MEDS: FUROSEMIDE INJ 20 MG/2 ML VIAL IV PUSH (09:19)
[2023-05-18] MEDS: methylPREDNISolone SOD SUCC 125 MG VIAL IV PUSH (09:39)
[2023-05-18] MEDS: AZITHROMYCIN 500 MG/NS 250 ML 500 MG/250 ML BAG 250 MG IVPB (09:41)
--- NOTE | 2023-05-18 09:47 | PC.NURSE ---
PT HAS BEEN UPDATED WITH PLAN OF CARE. PT HAS BEEN PLACED ON WAIT LIST AT [facility], NO BEDS AVAILABLE AT [facility], AWAITING BED AVAILABILITY AT [facility] TO CHECK STATUS AND RETURN CALL. FAMILY ARE AT BEDSIDE. ERP IS AT BEDSIDE AT THIS TIME. PT DENIES ANY NEEDS OR COMPLAINTS. ICE CHIPS WERE PROVIDED. WILL CONTINUE TO MONITOR.
--- NOTE | 2023-05-18 10:41 | PC.NURSE ---
PT IS REPORTING ABD PAIN, ERP IS NOTIFIED AND MEDICATIONS TO BE GIVEN. ERP IS SPEAKING WITH DR LARA WITH [facility] AT THIS TIME. WILL CONTINUE TO MONITOR.
[2023-05-18] MEDS: MORPHINE SULFATE (*CRX) 2 MG/ML INJ IV PUSH (10:45)
[2023-05-18 11:00] LABS: Reflex Lactic Acid Yes or No Add Lactic
--- NOTE | 2023-05-18 11:13 | PC.NURSE ---
PT HAS RETURNED FROM CT, REPORT TO ALBIN GORDON AT [facility]. PT IS TO BE ADMITTED TO [id number] AT [facility]. NAD NOTED. WILL CONTINUE TO MONITOR.
[2023-05-18 11:54] LABS: Lactic Acid 3.2 mmol/L (0.4-2.0)
--- NOTE | 2023-05-18 12:20 | PC.NURSE ---
PT IS UP TO SIDE OF STRETCHER USING URINAL AT THIS TIME. PT WAS TALKING WITH FAMILY PRIOR TO URINAL USE WITHOUT DISTRESS. PT IS AWAITING EMS TRANSPORT. WILL CONTINUE TO MONITOR.
== END 2023-05-18 12:51 | disposition short-term general hospital (02) ==
PROVIDERS: Emergency Provider Family Medicine; PCP Family Medicine
DX: I11.0 Hypertensive heart disease with heart failure (principal); I50.22 Chronic systolic (congestive) heart failure; I25.10 Atherosclerotic heart disease of native coronary artery without angina pectoris; E78.5 Hyperlipidemia, unspecified; F17.210 Nicotine dependence, cigarettes, uncomplicated; Z79.899 Other long term (current) drug therapy; Z79.01 Long term (current) use of anticoagulants; Z20.822 Contact with and (suspected) exposure to COVID-19
CPT/HCPCS: 36415; 71275; 74176; 80053; 83605; 83735; 83880; 84484; 85025; 86140; 87637; 93005; 96365; 96375; 99285; J0456; J1940; J2270; J2930; Q9967

== ENCOUNTER 2023-06-02 16:14 | Emergency (ER) | payer MEDICAID, SELFPAY ==
[2023-06-02] VITALS (38 sets, daily range): BP systolic 99–127; BP diastolic 80–97; PULSE 118–135; RESP 13–37; TEMP 37.1–37.2; O2SAT 95–100
--- NOTE | ~2023-06-02 | XR_ITS ---
Portable chest x-ray Comparison: 04/04/2023 Clinical History: Shortness of breath Findings: Lungs are clear, without focal consolidation or pleural effusion. Cardiomediastinal silho uette is stable, with pacemaker device. Bones and soft tissues are unremarkable. Impression: Clear lungs. Reviewed, dictated and finalized at location . ANGE ENGINEER Impression: Clear lungs.
--- NOTE | ~2023-06-02 | CT_ITS ---
CT of the Abdomen and Pelvis: Indication: Abdominal pain Technique: 2.5 mm axial scans were obtained through the abdomen and pelvis following intravenous adm inistration of 100 cc of Omnipaque 350. Dose reduction technique was used on this scan by utilizing a utomated exposure control and iterative reconstruction technique. The dose-length product (DLP) was 1 93.60 mGy-cm. COMPARISON: 05/18/2023 Findings: Scans through the lung bases demonstrate minimal bilateral pleural effusions. The liver, pancreas, adrenals and kidneys are within normal limits. Gallbladder is only partially dis tended, but there is suggestion of pericholecystic inflammatory change. Calcified splenic granulomas are present. There is extensive atherosclerotic change of the aorta, with distal aortic stent graft p resent. No lymphadenopathy. No bowel obstruction or bowel wall thickening. There is no evidence to suggest acute appendicitis. Images through the pelvis were performed. Urinary bladder unremarkable. No pelvic mass seen. Trace pe lvic free fluid noted. Impression: Mild pericholecystic infiltrative change. Correlate for acute cholecystitis. Consider ultrasound and/ or HIDA scan as indicated. Minimal bilateral pleural effusions. Reviewed, dictated and finalized at location . HAND Impression: Mild pericholecystic infiltrative change. Correlate for acute cholecystitis. Co nsider ultrasound and/or HIDA scan as indicated. Minimal bilateral pleural effusions.
--- NOTE | 2023-06-02 16:56 | ECG_ITS ---
Measurements Intervals [place] Rate: 132 P: RI: 0 QRS: -45 QRSD: 118 T: 102 QT: 294 QTc: 437 Interpretive Statements SINUS TACHYCARDIA LEFT AXIS DEVIATION INTRAVENTRICULAR CONDUCTION DELAY LEFT ATRIAL ENLARGEMENT CONSIDER ANTERIOR INFARCT, AGE INDETERMINATE ST-T WAVE ABNORMALITY IN HIGH LATERAL LEADS- CONSIDER ISCHEMIA BASELINE WANDER- V4-V5 ABNORMAL ECG COMPARED TO ECG 05/18/2023 07:52:25 HEART RATE HAS INCREASED Electronically Signed On 06-04-2023 7:23:05 OPERATOR VACUUM by Fabian Bosch D.O.
[2023-06-02] MEDS: PANTOPRAZOLE SODIUM IV 40 MG VIAL IV PUSH (17:33)
[2023-06-02] MEDS: MORPHINE SULFATE (*CRX) 4 MG/ML INJ IV PUSH (17:33)
[2023-06-02] MEDS: dilTIAZem HCl INJ 25 MG/5 ML VIAL 5 MG IV PUSH (17:55)
[2023-06-02 17:56] LABS: Basophils Absolute Auto 0.08 K/mm3 (0.00-0.10); Basophils Percent Auto 0.8 % (0.0-1.0); Eosinophils Absolute Auto 0.03 K/mm3 (0.02-0.50); Eosinophils Percent Auto 0.3 % (1.0-6.0); Hematocrit 43.7 % (40.0-54.0); Hemoglobin 14.2 g/dL (14.0-18.0); Immature Granulocyte Absolute 0.03 K/mm3 (0.00-0.00); Immature Granulocyte Percent A 0.3 % (0.0-0.0); Lymphocytes Absolute Auto 1.76 K/mm3 (1.10-4.50); Lymphocytes Percent Auto 18.3 % (18.0-42.0); Mean Corpuscular HGB Conc 32.5 g/dL (32.0-36.0); Mean Corpuscular Hemoglobin 30.4 pg (27.0-31.0); Mean Corpuscular Volume 93.6 fL (78.0-102.0); Mean Platelet Volume 10.7 fl (8.7-11.0); Monocytes Absolute Auto 0.73 K/mm3 (0.10-0.90); Monocytes Percent Auto 7.6 % (2.0-11.0); Neutrophils Percent Auto 72.7 % (50.0-70.0); Platelet Count Result 185 K/mm3 (150-420); Red Blood Count 4.67 M/mm3 (4.70-6.10); Red Cell Distribution Width 16.1 % (11.6-14.4); White Blood Count 9.6 K/mm3 (4.8-10.8)
[2023-06-02 18:11] LABS: INR 1.4; Partial Thromboplastin Time 28.1 SEC (23.90-30.70); Prothrombin Time 14.6 Seconds (9.50-12.10)
[2023-06-02 18:12] LABS: Appearance Urine Clear (Clear); Bilirubin Urine 2+ (Negative); Blood Urine Negative (Negative); Glucose Urine UA Trace (Negative); Ketones Urine Negative (Negative); Leukocyte Esterase Ur Negative LEU/UL (Negative); Nitrate Urine Negative (Negative); Protein Urine 2+ (Negative); Specific Grav Ur >= 1.030 (1.010-1.020); pH Urine 5.5 (5.0-8.0)
[2023-06-02 18:17] LABS: Lactic Acid Reflex 4.5 mmol/L (0.4-2.0)
[2023-06-02 18:19] LABS: Add Urine Microscopic? YES; Amorphous Sediment Urine Moderate; Bacteria Urine 1+ /hpf; Color Urine Dark Yellow (Yellow); Mucus Urine Heavy /lpf
[2023-06-02 18:26] LABS: Alanine Aminotransferase 262 U/L (16-63); Alkaline Phosphatase 109 U/L (46-116); Anion Gap 12 mmol/L (8-16); Aspartate Amino Transferase 35 U/L (15-37); Bilirubin,Total 2.4 mg/dL (0.00-1.00); Blood Urea Nitrogen 23 mg/dL (7-18); Calcium 8.2 mg/dL (8.5-10.1); Carbon Dioxide 23 mmol/L (21-32); Chloride 105 mmol/L (98-108); Estimated Glomerular Filt Rate 50; Glucose 86 mg/dL (70-99); Lipase 34 U/L (16-77); Osmolality Calculated 292 mOsm/kg (285-295); Potassium 4.3 mmol/L (3.5-5.1); Sodium 140 mmol/L (136-145); Total Protein 6.9 g/dL (6.4-8.2)
[2023-06-02 18:33] LABS: Troponin I 117.3 ng/L (0.00-60.4)
[2023-06-02 18:35] LABS: SARS-CoV-2 RNA PCR Negative (Negative)
[2023-06-02 18:36] LABS: Influenza A QL RT-PCR Negative (Negative); Influenza B QL RT-PCR Negative (Negative); RSV RNA, RT-PCR Negative (Negative)
[2023-06-02] MEDS: dilTIAZem 100 MG/100 ML 100 MG/100 ML BAG IV CONT (19:08)
--- NOTE | 2023-06-02 19:11 | PC.NURSE ---
report to samira shaw. all questions answered.
--- NOTE | 2023-06-02 19:33 | PC.NURSE ---
Report received. Pt resting c family at bedside. Pt has signed a DNR and he wants selective measures of treatment done and wants his GB fixed if able. Pt denies pain at this time. Currently on Cardizem gtt, monitor S Tach at rate of 129. Call placed to [facility] for Dr Worrell per pt and family request.
--- NOTE | 2023-06-02 20:00 | PC.NURSE ---
Explained POC to pt and family, awaiting call back for bed placement and that he is accepted for transfer by cardiology and the hospitalist Dr Alcantar. Pt resting, currently noted S tach on monitor c rate of 122. Increased rate to 6mg/hr per request of ERP Dr Latif for rate control. VSS.
[2023-06-02] MEDS: PIPERACILLN/TAZ 3.375GM/NS50ML 3.375 GM/50 ML BAG IVPB (20:17)
--- NOTE | 2023-06-02 20:17 | ED.ABDPAIN ---
HPI - Abdominal Pain General Chief Complaint: Abdominal Pain Stated Complaint: abdominal pain and weakness Time Seen by Provider: 06/02/23 16:31 Source: patient, family and EMS Mode of arrival: EMS Limitations: physical limitation History of Present Illness HPI narrative: this is a 62 year male brought in by EMS with abdominal pain and rapid heart rate, with some no fever chills some nausea no vomiting and complains of right upper quadrant abdominal pain. Patient has had similar pain recently discharged from [facility]. Patient has a history of CHF with an ejection fraction of 20 to 25%. Patient denies any diarrhea or constipation no flank pain no chest pain denies shortness of breath. Patient has had diagnosis of cholecystitis and apparently is a high risk for surgery because of his cardiac problems. Patient's family spoke to their prior commander police reserves that recommended that he go to the emergency department and have an evaluation. MD elicited complaint: abdominal pain Onset (ago): week(s) Pain Consistency: constant Location: RUQ Severity: severe Pain scale (0-10): 10 Quality: aching and fullness Migration to: RUQ Exacerbating factors: nothing Relieving factors: nothing Related Data Home Medications Medication Instructions Recorded Confirmed albuterol sulfate 90 mcg/actuation 2 puff inhalation QID PRN 04/25/19 05/18/23 aerosol inhaler (ProAir HFA) Shortness Of Breath furosemide 40 mg tablet 80 mg PO BID 04/25/19 05/18/23 rosuvastatin 40 mg tablet (Crestor) 20 mg PO HS 04/25/19 05/18/23 clopidogrel 75 mg tablet (Plavix) 75 mg PO DAILY 04/28/19 05/18/23 nitroglycerin 0.4 mg sublingual 0.4 mg sublingual Q5M PRN Chest 06/12/19 05/18/23 tablet Pain ipratropium bromide 17 2 puff inhalation QID 02/12/21 05/18/23 mcg/actuation HFA aerosol inhaler (Atrovent HFA) isosorbide mononitrate 30 mg 30 mg PO DAILY 02/12/21 05/18/23 tablet,extended release 24 hr mesalamine 500 mg capsule,extended 1,000 mg PO QID 02/12/21 05/18/23 release (Pentasa) rivaroxaban 20 mg tablet (Xarelto) 20 mg PO DAILY 02/12/21 05/18/23 tramadol 50 mg tablet 50 mg PO Q6H PRN Pain 02/12/21 05/18/23 amiodarone 200 mg tablet 200 mg PO DAILY 04/04/23 05/18/23 dapagliflozin propanediol 10 mg 10 mg PO DAILY 04/04/23 05/18/23 tablet (Farxiga) evolocumab 140 mg/mL subcutaneous 140 mg subcut ONCE 04/04/23 05/18/23 pen injector (Mayda Cancino) pantoprazole 40 mg tablet,delayed 40 mg PO QAM 04/04/23 05/18/23 release potassium chloride 20 mEq 20 meq PO BID 04/04/23 05/18/23 tablet,extended release(part/cryst) sacubitril 97 mg-valsartan 103 mg 1 tablet PO BID 04/04/23 05/18/23 tablet (Entresto) Allergies Allergy/AdvReac Type Severity Reaction Status Date / Time No Known Allergies Allergy Mild Verified 05/18/23 07:45 Review of Systems Review of Systems: All systems reviewed & are unremarkable except as noted in HPI and below PMFSH Past Medical History Medical History CAD in [place] artery Carotid stenosis, bilateral Chronic systolic heart failure COPD with asthma Essential hypertension History of CVA (cerebrovascular accident) Interstitial lung disease Obstructive sleep apnea PAD (peripheral artery disease) Renal artery stenosis SOB (shortness of breath) Stenosis of carotid artery Unspecified diastolic (congestive) heart failure Unspecified systolic (congestive) heart failure Family History Family History Father Family history of coronary artery disease Diabetes mellitus Family history of elevated blood lipids Mother Family history of coronary artery disease Family history of cardiovascular disease Sibling Family history of coronary artery disease Other Family history of gout Social History Social History Smoking packs per day:
[2023-06-02 20:53] LABS: Reflex Lactic Acid Yes or No Add Lactic
[2023-06-02 21:23] LABS: Lactic Acid 4.8 mmol/L (0.4-2.0)
[2023-06-02 21:25] LABS: Troponin I 161.8 ng/L (0.00-60.4)
== END 2023-06-02 21:02 | disposition short-term general hospital (02) ==
PROVIDERS: Emergency Provider Emergency Medicine; PCP Family Medicine
DX: K81.0 Acute cholecystitis (principal); I48.92 Unspecified atrial flutter; I11.0 Hypertensive heart disease with heart failure; I50.41 Acute combined systolic (congestive) and diastolic (congestive) heart failure; I25.10 Atherosclerotic heart disease of native coronary artery without angina pectoris; J44.9 Chronic obstructive pulmonary disease, unspecified; F17.210 Nicotine dependence, cigarettes, uncomplicated; Z86.73 Personal history of transient ischemic attack (TIA), and cerebral infarction without residual deficits; Z20.822 Contact with and (suspected) exposure to COVID-19
CPT/HCPCS: 36415; 71045; 74177; 80053; 81001; 83605; 83690; 83880; 84484; 85025; 85610; 85730; 87637; 93005; 96365; 96367; 96375; 96376; 99285; C9113; J2270; J2543; Q9967